=== PATIENT | female | born 1945 | race Caucasian/White ===

== ENCOUNTER → 2017-12-03 | Outpatient (CLI) | payer BC ==
--- NOTE | 2017-12-07 13:07 | MM ---
Reason for exam: screening (asymptomatic). Last mammogram was performed 1 year ago. History: Patient is postmenopausal and has history of high-risk lesion on a previous biopsy at age 63. High risk core biopsy of the right breast, June 2008. Benign right US cyst aspiration of the right breast, November 18, 2007. Taking estrogen for 8 years beginning at age 55. Taking progesterone for 8 years beginning at age 55. Physical Findings: Nurse did not find any significant physical abnormalities on exam. MG 3D Screening Mammo W/Cad Bilateral CC and MLO view(s) were taken. Prior study comparison: November 27, 2016, mammogram, performed at [facility]. September 25, 2015, mammogram, performed at [facility]. Finding: There is an equal architectural distortion in the 11 o'clock upper outer quadrant, middle position of the right breast, maybe distortion from prior surgery. New finding since November 27, 2016 and September 25, 2015. ASSESSMENT: Probably benign, BI-RAD 3 RECOMMENDATION: Follow-up diagnostic mammogram of the right breast in 6 months.
== END | disposition home or self-care (01) ==
LOC: RADMAMWWP 09:34
PROVIDERS: ATTEND Internal Medicine
DX: Z12.31 Encounter for screening mammogram for malignant neoplasm of breast (principal)
CPT/HCPCS: 77063; 77067

== ENCOUNTER 2018-01-08 08:57 | Day surgery (SDC) | payer BC ==
[2018-01-06 12:57] VITALS: BMI 23.3
[~2018-01-08 08:57] MED LIST: LACTATED RINGERS 1,000 ML IV SCH
[2018-01-08 09:50] VITALS: TEMP 98.2
[2018-01-08] MEDS ORDERED: LIDOCAINE 1% 20 ML VIAL (10MG/ML) FOR IV START INTRADERMA ONE (09:50)
[2018-01-08] MEDS ORDERED: LACTATED RINGERS 1,000 ML IV ONE (09:50)
[2018-01-08] MEDS ORDERED: PROPOFOL 10 MG/ML 20 ML VIAL IV ONE (10:24)
--- NOTE | 2018-01-08 10:42 | P.PCN ---
Date of Procedure: 01/08/18 Procedure(s) Performed: BRIEF HISTORY: Patient is a 72-year-old pleasant white female, scheduled for an elective colonoscopy as a part of screening for colorectal neoplasia. PROCEDURE PERFORMED: Colonoscopy with biopsy. PREOPERATIVE DIAGNOSIS: Screening for colon cancer. IV sedation per Anesthesia. PROCEDURE: After informed consent was obtained, the patient, was brought into the endoscopy unit. IV sedation was administered by Anesthesia under continuous monitoring. Digital rectal examination was normal. Initially the Olympus CF- 160 flexible video colonoscope was then inserted in the rectum, gradually advanced into the cecum without any difficulty. Careful examination was performed as the scope was gradually being withdrawn. Ileocecal valve and the appendiceal orifice were visualized and appeared normal. Prep was excellent. Mucosa of the cecum and a 5 mm sessile polyp that was removed by biopsy. The rest of the ascending colon, transverse colon, descending colon, sigmoid colon, and rectum appeared normal. scattered sigmoid diverticulosis seen. Retroflexion was performed in the rectum and no lesions were seen. The patient tolerated the procedure well. IMPRESSION: 5 mm cecal polyp status post removal by biopsy Scattered sigmoid diverticulosis RECOMMENDATIONS: Findings of this examination were discussed with the patient as well as her family. She was advised to follow with the biopsy results. If the biopsy shows a tubular adenoma, she can have a repeat colonoscopy in 5 years
[2018-01-08 10:47] VITALS: RESP 16
[2018-01-08 11:09] VITALS: BP 105/68; PULSE 50
== END 2018-01-08 11:31 | disposition home or self-care (01) ==
LOC: ORWHC2ENDO 08:57
PROVIDERS: ATTEND Internal Medicine Gastroenterology
DX: Z12.11 Encounter for screening for malignant neoplasm of colon (principal); D12.0 Benign neoplasm of cecum; K57.30 Diverticulosis of large intestine without perforation or abscess without bleeding
CPT/HCPCS: 88305; 45380; J2704

== ENCOUNTER → 2018-06-08 | Outpatient (CLI) | payer BC ==
--- NOTE | 2018-06-08 09:00 | MM ---
Reason for exam: follow-up at short interval from prior study. Last mammogram was performed 6 months ago. History: Patient is postmenopausal and has history of high-risk lesion on a previous biopsy at age 63. High risk core biopsy of the right breast, June 2008. Benign right US cyst aspiration of the right breast, November 18, 2007. Took estrogen for 8 years beginning at age 55. Took progesterone for 8 years beginning at age 55. Physical Findings: Nurse did not find any significant physical abnormalities on exam. MG 3D Diag Mammo W/Cad RT CC and MLO view(s) were taken of the right breast. Prior study comparison: December 03, 2017, bilateral MG 3d screening mammo w/cad. November 27, 2016, mammogram, performed at [facility]. The breast tissue is heterogeneously dense. This may lower the sensitivity of mammography. Finding #1: There is stable architectural distortion in the upper quadrant of the right breast consistent with known excisional biopsy. Finding #2: There are typically benign vascular, round calcifications in the right breast. There is no discrete abnormality. These results were verbally communicated with the patient and result sheet given to the patient on 06/08/18. ASSESSMENT: Benign, BI-RAD 2 RECOMMENDATION: Return to routine screening mammogram schedule for both breasts. Back on schedule.
== END ==
LOC: RADMAMWWP 08:07
PROVIDERS: ATTEND Internal Medicine
DX: R92.8 Other abnormal and inconclusive findings on diagnostic imaging of breast (principal)
CPT/HCPCS: 77061; 77065

== ENCOUNTER → 2018-06-15 | Outpatient (CLI) | payer BC | LOC: LABWHC1 09:41 | PROVIDERS: ATTEND Internal Medicine | DX: E83.52 Hypercalcemia (principal); R79.9 Abnormal finding of blood chemistry, unspecified | CPT/HCPCS: 36415; 82310; 83970 ==

== ENCOUNTER → 2018-12-06 | Outpatient (CLI) | payer BC ==
--- NOTE | 2018-12-06 11:13 | BD ---
EXAMINATION TYPE: Axial Bone Density DATE OF EXAM: 12/06/2018 COMPARISON: 2010 CLINICAL HISTORY: Postmenopausal female. Osteoporosis screening. Height: 5 FT 2 1/2 IN Weight: 144 FRAX RISK QUESTIONS: History of Fracture in Adulthood: YES RISK FACTORS HISTORY OF: Family History of Osteoporosis: YES Active: YES Postmenopausal woman: AGE 60'S Take estrogen and/or progesterone medications: TOOK HRT FOR FIVE YEARS Lost more than 2 inches in height since high school: YES MEDICATIONS: Additional Medications: FLONASE, Additional History: EXAM MEASUREMENTS: Bone mineral densitometry was performed using the [employer]. Bone mineral density as measured about the Lumbar spine is: ----- L1-L4(G/cm2): 1.217 T Score Values are as follows: ----- L2: -0.8 ----- L3: 1.2 ----- L4: 0.8 ----- L1-L4: 0.3 Bone mineral density has: DECREASED -2.5 % since study of: 2010 Bone mineral density about the R hip (g/cm2): 0.804 Bone mineral density about the L hip (g/cm2): 0.828 T Score values are as follows: -----R Neck: -1.7 -----L Neck: -1.5 -----R Total: -1.1 -----L Total: -1.4 Bone mineral density has: DECREASED -4.9 % since study of: 2010 IMPRESSION: Osteopenia (T Score between -2.5 and -1). There is slightly increased risk of fracture and the patient may be considered for treatment. Re-Screen 2-5 years. NOTE: T-SCORE=SD OF THE YOUNG ADULT MEAN.
--- NOTE | 2018-12-08 09:24 | MM ---
Reason for exam: screening (asymptomatic). Last mammogram was performed 6 months ago. History: Patient is postmenopausal and has history of high-risk lesion on a previous biopsy at age 63. High risk core biopsy of the right breast, June 2008. Benign right US cyst aspiration of the right breast, November 18, 2007. Took estrogen for 8 years beginning at age 55. Took progesterone for 8 years beginning at age 55. Physical Findings: A clinical breast exam by your physician is recommended on an annual basis and results should be correlated with mammographic findings. MG 3D Screening Mammo W/Cad Bilateral CC and MLO view(s) were taken. Prior study comparison: June 08, 2018, right breast MG 3d diag mammo w/cad RT. December 03, 2017, bilateral MG 3d screening mammo w/cad. The breast tissue is heterogeneously dense. This may lower the sensitivity of mammography. Finding: There are typically benign round, diffuse/scattered calcifications in the left breast. There are benign vascular calcification bilaterally. No discrete abnormality. ASSESSMENT: Benign, BI-RAD 2 RECOMMENDATION: Routine screening mammogram of both breasts in 1 year.
== END | disposition home or self-care (01) ==
LOC: RADMAMWWP 08:47
PROVIDERS: ATTEND Internal Medicine
DX: Z12.31 Encounter for screening mammogram for malignant neoplasm of breast (principal); M85.851 Other specified disorders of bone density and structure, right thigh; E83.52 Hypercalcemia
CPT/HCPCS: 77063; 77067; 77080

== ENCOUNTER → 2019-01-18 | Outpatient (CLI) | payer BC ==
--- NOTE | 2019-01-18 16:30 | CT ---
EXAMINATION TYPE: CT abdomen pelvis w con DATE OF EXAM: 01/18/2019 HISTORY: Upper quadrant abdominal pain. Suspect diverticulitis CT DLP: 477.10mGycm Automated Exposure Control for Dose Reduction was Utilized. CONTRAST: CT scan of the abdomen and pelvis is performed with IV Contrast, patient injected with 100 mL of Isov ue 300. COMPARISON: None. FINDINGS: LUNG BASES: There is pleural parenchymal scarring within the lingula and dependent bibasilar subsegme ntal atelectasis. The heart is enlarged. Small hiatal hernia is seen. LIVER/GB: Hepatic parenchyma is diffusely hypoattenuated in comparison to that of the spleen, most commonly see n in hepatic steatosis. This finding limits evaluation for hepatic masses. No gross evidence of hepat ic mass is seen. No intrahepatic biliary ductal dilatation. No cholelithiasis. PANCREAS: Pancreatic duct is upper limits of normal measuring 2.6 mm in the pancreatic body. No discr ete pancreatic mass is seen however MRCP could be utilized for further evaluation. SPLEEN: No significant abnormality is seen. ADRENALS: No significant abnormality is seen. KIDNEYS: To small to accurately characterize hypoattenuated left upper pole renal lesion and slightly larger 8mm left renal cyst are evident. No hydronephrosis of either kidney. 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 BOWEL: Numerous sigmoid diverticula are present. Very mild pericolonic fat stranding is seen surround ing the proximal sigmoid colon. No evidence of perforation or pericolonic abscess. Descending colonic and few transverse colonic diverticula are also noted. There is moderate degree colonic fecal stasis throughout. This limits evaluation of the colon. Lipomatous hypertrophy of the ileocecal valve is se en. No dilated large or small bowel. There is a fat filled left inguinal hernia with a neck measuring 2.5 cm on series 3 image 71. There is cystic dilation of the distal tip of the appendix measuring 1.2 x 1.0 cm adjacent to the rig ht common iliac artery on image 55 of series 3. Small mucocele is of primary diagnostic consideration . UTERUS/ADNEXA: No gross abnormality seen. LYMPH NODES: No greater than 1cm abdominal or pelvic lymph nodes are appreciated. OSSEOUS STRUCTURES: Mild bilateral femoral acetabular arthropathy and mild multilevel degenerative ch anges of spine. Mild levoscoliosis of the lumbar spine could be positional.. OTHER: Moderate atherosclerosis is seen of the abdominal aorta and its branches. IMPRESSION: 1. Very mild acute uncomplicated sigmoid diverticulitis. 2. Cystic dilatation of the distal appendiceal tip is seen measuring up to 1.2 cm. Primary diagnostic consideration is for a small appendiceal mucocele. 3. Fat filled left inguinal hernia with a neck measuring 2.5 cm. 4. Upper limits of normal size of the pancreatic duct. MRCP could be utilized for further evaluation. 5. Mild degree hepatic steatosis. 6. Moderate degree colonic fecal stasis throughout the nondilated colon.
== END | disposition home or self-care (01) ==
LOC: RADCTMAIN 12:38
PROVIDERS: ATTEND Surgery Plastic and Reconstructive Surgery
DX: K57.32 Diverticulitis of large intestine without perforation or abscess without bleeding (principal); K76.0 Fatty (change of) liver, not elsewhere classified; K40.90 Unilateral inguinal hernia, without obstruction or gangrene, not specified as recurrent; K38.8 Other specified diseases of appendix; Z88.5 Allergy status to narcotic agent
CPT/HCPCS: 82565; 84520; 74177; 36415; Q9967

== ENCOUNTER → 2019-01-25 | Outpatient (CLI) | payer BC | END | disposition home or self-care (01) | LOC: RADXRMAIN 11:44 | PROVIDERS: ATTEND Surgery Plastic and Reconstructive Surgery | DX: Z01.810 Encounter for preprocedural cardiovascular examination (principal) | CPT/HCPCS: 93005 ==

== ENCOUNTER 2019-03-08 20:29 | Emergency (ER) | payer BC ==
[2019-03-08 22:20] LABS: Appearance,Urine Clear (Clear); Bilirubin,Urine Negative (Negative); Blood,Urine Small (Negative); Color,Urine Light Yellow; Glucose,Urine (UA) Negative (Negative); Ketones,Urine Negative (Negative); Leukocyte Esterase,Urine Large (Negative); Mucus,Urine Rare /hpf; Nitrite,Urine Negative (Negative); PH, Urine 6.5 (5.0-8.0); Protein,Urine Negative (Negative); RBC,Urine 7 /hpf (0-5); Specific Gravity,Urine 1.009 (1.001-1.035); Squamous Epithelial Cell,Urine 1 /hpf (0-4); Urobilinogen,Urine <2.0 mg/dL (<2.0); WBC,Urine 27 /hpf (0-5)
--- NOTE | 2019-03-08 22:24 | ED ---
Abdominal Pain HPI - General Chief Complaint: Abdominal Pain Stated Complaint: Constipation, sent by [facility] hernia Time Seen by Provider: 03/08/19 20:53 Source: patient Mode of arrival: ambulatory Limitations: no limitations - History of Present Illness Initial Comments: Patient is a 73-year-old female presenting to the emergency department with a chief complaint of constipation. Patient reports she is scheduled to have an ventral hernia repair with Dr. Jimenez and is currently undergoing presurgical testing. Patient reports constipation over the past 3 weeks. Patient reports she spoke with the primary care who suggested that she takes stool softeners. Patient is currently a stool softeners but reports her last bowel movement was 4 days ago. Patient denies any nausea or vomiting or diarrhea. Patient denies any fevers night sweats or chills. Patient does report abdominal bloating but denies any abdominal pain. Patient reports rather abdominal discomfort. Patient reports taking gyat-[id number] analgesics with minimal improvement. - Related Data Home Medications Medication Instructions Recorded Confirmed Pravastatin Sodium [Pravachol] 20 mg PO DAILY 03/08/19 03/08/19 Allergies Allergy/AdvReac Type Severity Reaction Status Date / Time codeine Allergy Confusion Verified 03/08/19 20:59 Review of Systems ROS Statement: Those systems with pertinent positive or pertinent negative responses have been documented in the HPI. ROS Other: All systems not noted in ROS Statement are negative. Past Medical History Past Medical History: Asthma History of Any Multi-Drug Resistant Organisms: None Reported Past Surgical History: Breast Surgery Additional Past Surgical History / Comment(s): BREAST BIOPSY, COLONOSCOPY Past Anesthesia/Blood Transfusion Reactions: Motion Sickness, Postoperative Nausea & Vomiting (PONV) Past Psychological History: No Psychological Hx Reported Smoking Status: Never smoker Past Alcohol Use History: None Reported Past Drug Use History: None Reported - Past Family History Mother Family Medical History: Cancer Additional Family Medical History / Comment(s): CERVICAL CANCER Father Family Medical History: Cancer General Exam Limitations: no limitations General appearance: alert, in no apparent distress Head exam: Present: atraumatic, normocephalic, normal inspection Eye exam: Present: normal appearance, PERRL, EOMI Pupils: Present: normal accommodation ENT exam: Present: normal exam, normal oropharynx, mucous membranes moist, TM's normal bilaterally, normal external ear exam Neck exam: Present: normal inspection, full ROM Respiratory exam: Present: normal lung sounds bilaterally Cardiovascular Exam: Present: regular rate, normal rhythm, normal heart sounds GI/Abdominal exam: Present: soft, normal bowel sounds, hernia (Left-sided v entral hernia that is reducible. No pain over the hernia.). Absent: tenderness Extremities exam: Present: normal inspection, full ROM Back exam: Present: normal inspection, full ROM. Absent: CVA tenderness (R), CVA tenderness (L) Neurological exam: Present: alert, oriented X3 Psychiatric exam: Present: normal affect, normal mood Skin exam: Present: warm, intact, normal color Course Vital Signs 03/08/19 20:32 Temperature 98.9 F Pulse Rate 71 Respiratory 18 Rate Blood Pressure 156/82 O2 Sat by Pulse 95 Oximetry Medical Decision Making - Medical Decision Making Patient is 73-year-old female presenting to emergency Department with a chief complaint of constipation. Patient is scheduled to undergo an elective ventral hernia repair as soon as she is cleared by her presurgical screenings. Patient has a reducible ventral hernia at the left lower quadrant. Patient doesn't have any pain with palpation at the hernia site. I have no concern for i ncarceration of the intestines of MRSA. CBC and CMP unremarkable. UA is indicative of a possible mild UTI but she is not symptomatic so I am not going to treat the patient. X-ray KUB is unremarkable. Patient does have small bowel loops with no small intestine dilation. Patient will be given magnesium citrate and advised to take at home. Patient advised to continue her presurgical workup. Patient advised to follow with primary care. Strict return parameters thoroughly discussed the patient was understanding and agreeable. Case discussed physician. - Lab Data Result diagrams: 03/08/19 22:29 03/08/19 22:29 Lab Results 03/08/19 03/08/19 03/08/19 Range/Units 22:09 22:29 22:29 WBC 7.7 (3.8-10.6) k/uL RBC 4.29 (3.80-5.40) m/uL Hgb 12.8 (11.4-16.0) gm/dL Hct 38.3 (34.0-46.0) % MCV 89.3 (80.0-100.0) fL MCH 29.8 (25.0-35.0) pg MCHC 33.4 (31.0-37.0) g/dL RDW 14.2 (11.5-15.5) % Plt Count 261 (150-450) k/uL Neutrophils % 65 % Lymphocytes % 23 % Monocytes % 6 % Eosinophils % 4 % Basophils % 1 % Neutrophils # 5.0 (1.3-7.7) k/uL Lymphocytes # 1.7 (1.0-4.8) k/uL Monocytes # 0.4 (0-1.0) k/uL Eosinophils # 0.3 (0-0.7) k/uL Basophils # 0.1 (0-0.2) k/uL Sodium 141 (137-145) mmol/L Potassium 3.9 (3.5-5.1) mmol/L Chloride 106 (98-107) mmol/L Carbon Dioxide 26 (22-30) mmol/L Anion Gap 9 mmol/L BUN 14 (7-17) mg/dL Creatinine 0.80 (0.52-1.04) mg/dL Est GFR (CKD-EPI)AfAm 84 (>60 ml/min/1.73 sqM) Est GFR (CKD-EPI)NonAf 73 (>60 ml/min/1.73 sqM) Glucose 100 H (74-99) mg/dL Calcium 10.4 H (8.4-10.2) mg/dL Total Bilirubin 0.6 (0.2-1.3) mg/dL AST 26 (14-36) U/L ALT 27 (9-52) U/L Alkaline Phosphatase 97 (38-126) U/L Total Protein 7.1 (6.3-8.2) g/dL Albumin 4.1 (3.5-5.0) g/dL Amylase 82 (30-110) U/L Lipase 255 (23-300) U/L Urine Color Light Yellow Urine Appearance Clear (Clear) Urine pH 6.5 (5.0-8.0) Ur Specific [facility] 1.009 (1.001-1.035) Urine Protein Negative (Negative) Urine Glucose (UA) Negative (Negative) Urine Ketones Negative (Negative) Urine Blood Small H (Negative) Urine Nitrite Negative (Negative) Urine Bilirubin Negative (Negative) Urine Urobilinogen <2.0 (<2.0) mg/dL Ur Leukocyte Esterase Large H (Negative) Urine RBC 7 H (0-5) /hpf Urine WBC 27 H (0-5) /hpf Ur Squamous Epith Cells 1 (0-4) /hpf Urine Mucus Rare H (None) /hpf Disposition Clinical Impression: Constipation Disposition: HOME SELF-CARE Condition: Stable Instructions (If sedation given, give patient instructions): Constipation (DC) Additional Instructions: Please take prescribed medication as directed. These follow with primary care. Please return to emergency department if symptoms worsen. Is patient prescribed a controlled substance at d/c from ED?: No Referrals: Nadine Guerrero MD [Primary Care Provider] - 1-2 days Time of Disposition: 23:27
--- NOTE | 2019-03-08 22:26 | XR ---
EXAMINATION TYPE: XR KUB DATE OF EXAM: 03/08/2019 9:39 PM CLINICAL HISTORY: Left-sided hernia. Constipation and lower abdominal pain TECHNIQUE: 2 upright views. COMPARISON: None. FINDINGS: Scattered gas is seen in non-distended small bowel loops. Gas and fecal material is seen in non-distended colon. There is no visceromegaly, pneumoperitoneum, or abnormal calcification apprecia darren. The visualized lung bases and pleural spaces are negative for acute findings. There is moderate marke d enlargement of the cardiac silhouette. IMPRESSION: No acute radiographic process.
[2019-03-08 22:37] LABS: Basophils # (A) 0.1 k/uL (0-0.2); Basophils % (A) 1 %; Eosinophils # (A) 0.3 k/uL (0-0.7); Eosinophils % (A) 4 %; HCT 38.3 % (34.0-46.0); HGB 12.8 gm/dL (11.4-16.0); Lymphocytes # (A) 1.7 k/uL (1.0-4.8); Lymphocytes % (A) 23 %; MCH 29.8 pg (25.0-35.0); MCHC 33.4 g/dL (31.0-37.0); MCV 89.3 fL (80.0-100.0); Mean Platelet Volume 7.2; Monocytes # (A) 0.4 k/uL (0-1.0); Monocytes % (A) 6 %; Neutrophils % (A) 65 %; Platelet Count 261 k/uL (150-450); RBC 4.29 m/uL (3.80-5.40); RDW 14.2 % (11.5-15.5); WBC 7.7 k/uL (3.8-10.6)
[2019-03-08 22:47] LABS: Albumin 4.1 g/dL (3.5-5.0); Calcium 10.4 mg/dL (8.4-10.2); Potassium 3.9 mmol/L (3.5-5.1); Total Bilirubin 0.6 mg/dL (0.2-1.3); Total Protein 7.1 g/dL (6.3-8.2)
[2019-03-08] MEDS ORDERED: MAGNESIUM CITRATE 296 ML BOTTLE PO ONE (23:20)
[2019-03-08 23:47] VITALS: BP 133/76; PULSE 752; RESP 16; TEMP 98.8
== END 2019-03-08 23:47 | disposition home or self-care (01) ==
LOC: EC 20:29
DX: K59.00 Constipation, unspecified (principal); K43.9 Ventral hernia without obstruction or gangrene; Z79.899 Other long term (current) drug therapy; Z88.5 Allergy status to narcotic agent
CPT/HCPCS: 36415; 74018; 80053; 81001; 82150; 83690; 85025; 99284

== ENCOUNTER → 2019-06-02 | Day surgery (SDC) | payer BC ==
[2019-05-31 14:43] VITALS: BMI 24.0
[~2019-06-02] MED LIST changes: +BUPIVACAIN-EPI 0.25%-1:200,000 30 ML VIAL SQ ONE; +DEXAMETHASONE SOD PHOSPHATE 10 MG/ML 1 ML VIAL IV ONE; +GLYCOPYRROLATE 0.2 MG/ML 2 ML VIAL ONE; +HEPARIN SODIUM,PORCINE 5,000 UNIT/ML 1 ML VIAL SQ ONE; +HYDROmorphone 0.5 MG/0.5 ML SYRINGE IVP PRN; +LACTATED RINGERS 1,000 ML IV ONE; -LACTATED RINGERS 1,000 ML IV SCH; +LIDOCAINE 1% 20 ML VIAL (10MG/ML) FOR IV START INTRADERMA ONE; +LIDOCAINE 1% INJ 10MG/ML (20 ML MDV) ONE; +MIDAZOLAM 2 MG/2 ML VIAL IVP ONE; +NEOSTIGMINE 1 MG/ML 10 ML VIAL ONE; +ONDANSETRON 4 MG/2 ML VIAL IVP ONE; +ONDANSETRON 4 MG/2 ML VIAL IVP PRN; +PROPOFOL 10 MG/ML 20 ML VIAL IV ONE; +ROCURONIUM BROMIDE 10 MG/ML 10 ML VIAL IV ONE; +ROPIVACAINE 5 MG/ML 30 ML VIAL ONE; +SCOPOLAMINE 1.5MG/72HR PATCH TRANSDERM ONE; +TAMSULOSIN 0.4 MG CAP.ER.24H PO ONE; +ePHEDrine SULFATE/0.9% NACL/PF 50 MG/5 ML SYRINGE IV ONE; +fentaNYL (PF) 50 MCG/ML 2 ML AMP ONE; +metroNIDAZOLE-NS PMX 500 MG in SALINE 1 100ML.BAG IVPB ONE
--- NOTE | 2019-06-02 09:34 | P.GSHP ---
History of Present Illness H&P Date: 06/02/19 CHIEF COMPLAINT: Inguinal hernia, left HISTORY OF PRESENT ILLNESS: The patient is a 74-year-old female who presents with a history of swelling and pain along the left groin. She has noted increased swelling including pain of the area. Now she presents for repair of her inguinal hernia. 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 PAST MEDICAL HISTORY: Please see list. PAST SURGICAL HISTORY: Please see list. MEDICATIONS: Please see list. ALLERGIES: Please see list. SOCIAL HISTORY: No illicit drug use FAMILY HISTORY: No reports of Crohn disease or ulcerative colitis. REVIEW OF ORGAN SYSTEMS: CONSTITUTIONAL: No reports of fevers or chills. No reports of weight loss despite prior attempts. GI: Denies any blood in stools. Has constipation. PHYSICAL EXAM: VITAL SIGNS: Stable GENERAL: Well-developed pleasant in no acute distress. HEENT: No scleral icterus. Extraocular movements grossly intact. Moist buccal mucosa. NECK: Supple without lymphadenopathy. CHEST: Unlabored respirations. Equal bilateral excursions. CARDIOVASCULAR: Regular rate and rhythm. Distal 2+ pulses. ABDOMEN: Soft, nondistended. No peritoneal signs. Swelling along the left lower quadrant MUSCULOSKELETAL: No clubbing, cyanosis, or edema. ASSESSMENT: 1. Inguinal hernia, left 2. Mucocele of the appendix. PLAN: 1. Recommend proceeding robotic inguinal repair with mesh with possible bilateral approach. 2. Benefits and risks of surgical intervention was discussed including possibility of open technique. 3. DVT prophylaxis. 4. Antibiotic prophylaxis. 5. Additional appendectomy for mucocele of the appendix. Past Medical History Past Medical History: No Reported History History of Any Multi-Drug Resistant Organisms: None Reported Past Surgical History: Breast Surgery, Tonsillectomy Additional Past Surgical History / Comment(s): BREAST BIOPSY RIGHT Past Anesthesia/Blood Transfusion Reactions: Postoperative Nausea & Vomiting (PONV) Smoking Status: Never smoker - Past Family History Mother Family Medical History: Cancer Additional Family Medical History / Comment(s): CERVICAL CANCER Father Family Medical History: Cancer Medications and Allergies Home Medications Medication Instructions Recorded Confirmed Type Pravastatin Sodium [Pravachol] 20 mg PO DAILY 03/08/19 05/31/19 History Allergies Allergy/AdvReac Type Severity Reaction Status Date / Time codeine Allergy Confusion Verified 05/31/19 14:38
[2019-06-02] MEDS: LACTATED RINGERS 1,000 ML IV SCH (11:30)
--- NOTE | 2019-06-02 12:46 | P.ANPRN ---
Procedure Note - Anesthesia - Nerve Block Performed Bilateral Transversus Abdominis Single Time Out Performed: Yes Date of Procedure: 06/02/19 Procedure Start Time: 12:35 Procedure Stop Time: 12:39 Location of Patient: PreOp Indication: Acute Post-Operative Pain, Analgesia, Requested by Surgeon Sedation Type: Sedate with meaningful contact maintained Preparation: Sterile Prep Position: Supine Catheter: None Needle Types: Pajunk Needle Gauge: 21 Ultrasound used to visualize needle placement: Yes Ultrasound used to observe medication spread: Yes Injectate: Other (see comment) (0.25 ropivacaine 30cc b/l) Blood Aspirated: No Pain Paresthesia on Injection Noted: No Resistance on Injection: Normal Image Stored and Saved: Yes Events: Uneventful and Well Tolerated
[2019-06-02 15:20] VITALS: RESP 16; TEMP 98
--- NOTE | 2019-06-02 15:39 | P.OP ---
Date of Procedure: 06/02/19 Description of Procedure: SURGEON: KAMINI STUART MD PREOPERATIVE DIAGNOSES: 1. History of left inguinal swelling and pain 2. Previous history of tubal ligation and hysterectomy 3. 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 History of left inguinal swelling and pain 2. Previous history of tubal ligation and hysterectomy 3. 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 Left inguinal hernia, indirect, initial and incarcerated, 3 cm 5. Internal hernia x 2, left pelvis due to adhesions 6. Peritoneal adhesions 7. Left inguinal lipoma, 3 x 4 cm OPERATION: 1. Robotic assisted da Torsten Xi laparoscopic reduction of incarcerated left inguinal hernia with repair using ventralight ST mesh, 11.4 cm. 2. Robotic assisted da Torsten Xi laparoscopic appendectomy 3. Robotic assisted da Torsten Xi laparoscopic reduction of internal hernia with lysis of adhesions 4. Excision of subfascial left inguinal lipoma 3 x 4 cm ANESTHESIA: General with local anesthetic ESTIMATED BLOOD LOSS: 5 mL. SPECIMENS REMOVED: 1. Appendix 2. Left inguinal hernia sac and lipoma COMPLICATIONS: None. FINDINGS: 1. Large subfascial left inguinal tumor resected 3 x 4 cm 2. The tip of the appendix was dilated without periappendicitis. No perforation was identified. 3. Abnormal adhesion between the greater omentum and left fallopian tube was found creating an internal hernia incorporating the sigmoid colon and divided. 4. The size of the hernia defect was 3 cm with intraoperative films obtained. 5. Abnormal adhesion of the left pelvis to her prior tubal ligation was found creating internal hernia also divided. INDICATIONS: The patient is a 74-year-old female who presents with history of left-sided pain. Additional work-up with CT of the abdomen also demonstrated a tumor of the appendix. Now she presents for definitive surgical intervention. L aparoscopic versus open and robotic approaches were discussed. Left inguinal hernia repair including appendectomy were reviewed. Benefits and risks including bleeding, infection, and chronic groin pain were reviewed. Placement of mesh was also described. Informed consent was obtained. DESCRIPTION: In the preoperative area, the patient was marked with indelible marker along the left groin. The patient was brought to the operating room and initially laid in supine position. After general induction, the abdomen had been prepped and draped in standard sterile fashion. Ioban draping was also placed. Prior to incision, a timeout protocol was confirmed with surgical team regarding patient's name including procedures to be performed and location along the left groin. Initial positioning for the robotic assisted ports were selected whereby 20 cm superior to the target anatomy, 0 degree 5 mm laparoscopic trocar entry was performed at the left upper quadrant. The abdomen was insufflated to 15 mmHg which she had tolerated well. Diagnostic laparoscopy demonstrated a defect along the left groin. No defects were identified along the right groin. A dilated tip of the appendix was identified with peritoneal studding. The base of the cecum was unremarkable. Next, along the epigastrium, 8 mm robot trocar was placed. A 12-mm robotic trocar was placed under direct visualization at the right upper quadrant. The 5 mm port was exchanged for a 8 mm trocar. All trocars were positioned 10-cm apart from each other. The iRezQ XI robot was primed, draped, prepared for docking along the left side of the patient. I then went to the iRez[employer] Xi console. The speech pathology assistant was at bedside for exchange of the robot arms and equipment. At the left groin, the peritoneum was scored over the 3 cm defect. The hernia sac was evaginated whereby the peritoneum was scored using Endo scissors with cautery. The hernia sac had reached into the depth of the left inguinal canal. Additionally, a 3 x 4 cm subfascial inguinal canal tumor was excised and evaginated into the peritoneal cavity using vessel sealer. Once completely reduced into the abdominal cavity, the peritoneal sac of the hernia was stripped. The sac was resected and then passed off for further pathological analysis. The size of the hernia defect was 3 cm with intraoperative films obtained. Using a 2-0 VLOC, the peritoneal defect of the left inguinal hernia site was closed using a pursestring suture. The defect was found to be completely closed with complete reduction of the left inguinal hernia was confirmed. As an onlay, an 11.[address] mesh by Zenty[employer] was cut in half and entered into the abdominal cavity via the 8 mm trocar. The mesh was tacked to the pelvis using 2-0 VLOC 9-inch length sutures. At the hernia site, an abnormal adhesion between the greater omentum and left fallopian tube was found creating an internal hernia incorporating the sigmoid colon. The adhesion was divided and the internal hernia was released. Next another internal hernia from abnormal adhesion of the left pelvis to her prior tubal ligation was found. Similar, the adhesion was divided freeing the fallopian tube and releasing the internal hernia. Attention was brought to the appendix. The tip of the appendix was dilated without periappendicitis. No perforation was identified. A 45 mm blue robotic staple load was fired along the base of the appendix. The staple line was hemostatic. Hemostasis was checked prior to undocking the robot. The robot was undocked from the patient's bedside. I then rescrubbed into the case. The specimen was removed from the abdominal cavity from the right upper quadrant port site. Insufflation was released from the abdominal cavity and all instruments were removed from the abdominal cavity. The rest of incisions were reapproximated using 4-0 Monocryl in a running subcuticular fashion. Incisions were cleansed using dilute hydrogen peroxide. Dermabond was applied to the skin. At the end of the procedure, the needle, sponge and instrument counts had been verified correct by the nursing surgical services director. The patient had tolerated the procedure well and was taken to the postanesthesia care unit in stable condition. Intraoperative findings were described to the patient's family who were pleased with the level of care.
[2019-06-02 16:30] VITALS: PULSE 53
[2019-06-02 16:42] VITALS: BP 139/76
== END | disposition home or self-care (01) ==
LOC: OR 10:16
PROVIDERS: ATTEND Surgery Plastic and Reconstructive Surgery
DX: K40.30 Unilateral inguinal hernia, with obstruction, without gangrene, not specified as recurrent (principal); D17.1 Benign lipomatous neoplasm of skin and subcutaneous tissue of trunk; K38.8 Other specified diseases of appendix; K66.0 Peritoneal adhesions (postprocedural) (postinfection); Z90.710 Acquired absence of both cervix and uterus; Z98.51 Tubal ligation status; Z80.49 Family history of malignant neoplasm of other genital organs; Z80.9 Family history of malignant neoplasm, unspecified; Z79.899 Other long term (current) drug therapy; Z88.5 Allergy status to narcotic agent
CPT/HCPCS: 49650; S2900; 64488; 88304

== ENCOUNTER → 2019-08-31 | Outpatient (CLI) | payer BC ==
[2019-08-31 10:07] LABS: Chol/HDL Ratio 2.69; LDL Cholesterol,Calculated 108.2 mg/dL (0.0-131.0); VLDL Calculation 11.8 mg/dL (5.00-40.00)
== END | disposition home or self-care (01) ==
LOC: LABWHC1 07:31
PROVIDERS: ATTEND Nurse Practitioner Adult Health
DX: E78.2 Mixed hyperlipidemia (principal)
CPT/HCPCS: 36415; 80061

== ENCOUNTER → 2019-12-26 | Outpatient (CLI) | payer BC ==
[2019-12-26 18:15] LABS: Chol/HDL Ratio 2.8; LDL Cholesterol,Calculated 107.4 mg/dL (0.0-131.0); VLDL Calculation 11.6 mg/dL (5.00-40.00)
== END | disposition home or self-care (01) ==
LOC: LABWHC1 08:21
PROVIDERS: ATTEND Nurse Practitioner Family
DX: E78.49 Other hyperlipidemia (principal)
CPT/HCPCS: 36415; 80061

== ENCOUNTER → 2019-12-29 | Outpatient (CLI) | payer BC ==
--- NOTE | 2019-12-30 10:59 | MM ---
Reason for exam: screening (asymptomatic). Last mammogram was performed 1 year and 1 month ago. History: Patient is postmenopausal and has history of high-risk lesion on a previous biopsy at age 63. High risk core biopsy of the right breast, June 2008. Benign right US cyst aspiration of the right breast, November 18, 2007. Took estrogen for 8 years beginning at age 55. Took progesterone for 8 years beginning at age 55. Physical Findings: A clinical breast exam by your physician is recommended on an annual basis and results should be correlated with mammographic findings. MG 3D Screening Mammo W/Cad Bilateral CC and MLO view(s) were taken. Prior study comparison: December 06, 2018, bilateral MG 3d screening mammo w/cad. June 08, 2018, right breast MG 3d diag mammo w/cad RT. There are scattered fibroglandular densities. No significant changes when compared with prior studies. ASSESSMENT: Benign, BI-RAD 2 RECOMMENDATION: Routine screening mammogram of both breasts in 1 year.
== END | disposition home or self-care (01) ==
LOC: RADMAMWWP 09:29
PROVIDERS: ATTEND Family Medicine
DX: Z12.31 Encounter for screening mammogram for malignant neoplasm of breast (principal)
CPT/HCPCS: 77063; 77067

== ENCOUNTER → 2020-04-13 | Outpatient (CLI) | payer BC ==
[2020-04-13 08:26] LABS: HCT 41.7 % (34.0-46.0); HGB 13.3 gm/dL (11.4-16.0); MCH 29.9 pg (25.0-35.0); MCHC 31.9 g/dL (31.0-37.0); MCV 93.6 fL (80.0-100.0); Mean Platelet Volume 6.8; Platelet Count 227 k/uL (150-450); RBC 4.45 m/uL (3.80-5.40); WBC 5.8 k/uL (3.8-10.6)
== END | disposition home or self-care (01) ==
LOC: LABPAT 07:40
PROVIDERS: ATTEND Anesthesiology
DX: Z01.818 Encounter for other preprocedural examination (principal); K40.91 Unilateral inguinal hernia, without obstruction or gangrene, recurrent
CPT/HCPCS: 36415; 85027; 93005

== ENCOUNTER 2020-04-16 05:52 | Day surgery (SDC) | payer BC ==
[2020-04-12 15:45] VITALS: BMI 23.3
[2020-04-16] MEDS ORDERED: HEPARIN SODIUM,PORCINE 5,000 UNIT/ML 1 ML VIAL SQ ONE (06:00)
[2020-04-16] MEDS ORDERED: ACETAMINOPHEN TAB 500 MG TAB PO STA (06:24)
[2020-04-16] MEDS ORDERED: GABAPENTIN 300 MG CAP PO STA (06:24)
[2020-04-16] MEDS ORDERED: LACTATED RINGERS 1,000 ML IV ONE ×2 (06:26→08:10)
--- NOTE | 2020-04-16 06:26 | P.GSHP ---
History of Present Illness H&P Date: 04/16/20 CHIEF COMPLAINT: Inguinal hernia, left HISTORY OF PRESENT ILLNESS: The patient is a 75-year-old female who presents with a history of swelling and pain along the left groin. She has had previous repair. She's noted increased swelling including pain of the area. Now she presents for repair of her inguinal hernia. PAST MEDICAL HISTORY: Please see list. PAST SURGICAL HISTORY: Please see list. MEDICATIONS: Please see list. ALLERGIES: Please see list. SOCIAL HISTORY: No illicit drug use FAMILY HISTORY: No reports of Crohn disease or ulcerative colitis. REVIEW OF ORGAN SYSTEMS: CONSTITUTIONAL: No reports of fevers or chills. No reports of weight loss despite prior attempts. GI: Denies any blood in stools or constipation. PHYSICAL EXAM: VITAL SIGNS: Stable GENERAL: Well-developed pleasant male in no acute distress. HEENT: No scleral icterus. Extraocular movements grossly intact. Moist buccal mucosa. NECK: Supple without lymphadenopathy. CHEST: Unlabored respirations. Equal bilateral excursions. CARDIOVASCULAR: Regular rate and rhythm. Distal 2+ pulses. ABDOMEN: Soft, nondistended. No peritoneal signs. Palpable defect of the left groin. MUSCULOSKELETAL: No clubbing, cyanosis, or edema. ASSESSMENT: 1. Inguinal hernia, left PLAN: 1. Recommend proceeding with a robotic inguinal repair with mesh with possible bilateral approach. 2. Benefits and risks of surgical intervention was discussed including possibility of open technique. 3. DVT prophylaxis. 4. Antibiotic prophylaxis. Past Medical History Past Medical History: No Reported History Additional Past Medical History / Comment(s): RECURRENT LT INGUINAL HERNIA History of Any Multi-Drug Resistant Organisms: None Reported Past Surgical History: Appendectomy, Breast Surgery, Hernia Repair, Tonsillectomy, Tubal Ligation Additional Past Surgical History / Comment(s): BREAST BIOPSY RIGHT. LT INGUINAL HERNIA 05/2019 WITH LYSIS OF ADHESIONS. COLONOSCOPY Past Anesthesia/Blood Transfusion Reactions: Postoperative Nausea & Vomiting (PONV) Smoking Status: Never smoker - Past Family History Mother Family Medical History: Cancer Additional Family Medical History / Comment(s): CERVICAL CANCER Father Family Medical History: Cancer Medications and Allergies Home Medications Medication Instructions Recorded Confirmed Type Pravastatin Sodium [Pravachol] 20 mg PO DAILY 03/08/19 04/12/20 History Acetaminophen Tab [Tylenol Tab] 500 mg PO Q6H PRN #30 tablet 06/02/19 04/12/20 Rx Ascorbic Acid [Vitamin C] 500 mg PO DAILY 04/12/20 04/12/20 History Multivitamins, Thera [Multivitamin 1 tab PO DAILY 04/12/20 04/12/20 History (formulary)] Ubidecarenone [Co Q-10] 100 mg PO DAILY 04/12/20 04/12/20 History Allergies Allergy/AdvReac Type Severity Reaction Status Date / Time codeine Allergy Confusion Verified 04/12/20 15:28 povidone-iodine AdvReac ITCHINH, Verified 04/12/20 15:29 [From Betadine] RED, RASH soap [From Betadine] AdvReac ITCHINH, Verified 04/12/20 15:29 RED, RASH Surgical - Exam Vital Signs Temp Pulse Resp BP Pulse Ox 97.5 F L 75 16 127/60 98 04/16/20 06:16 04/16/20 06:16 04/16/20 06:16 04/16/20 06:16 04/16/20 06:16
[2020-04-16] MEDS ORDERED: ACETAMINOPHEN TAB 500 MG TAB ONE (06:27)
[2020-04-16] MEDS ORDERED: LIDOCAINE 1% (10MG/ML) FOR IV START INTRADERMA ONE (06:29)
[2020-04-16] MEDS ORDERED: HYDROmorphone 0.5 MG/0.5 ML SYRINGE IVP PRN (06:31)
[2020-04-16] MEDS ORDERED: LACTATED RINGERS 1,000 ML IV SCH (06:31)
[2020-04-16] MEDS ORDERED: DEXAMETHASONE SOD PHOSPHATE 10 MG/ML 1 ML VIAL IV ONE (06:31)
[2020-04-16] MEDS ORDERED: ONDANSETRON 4 MG/2 ML VIAL IVP ONE ×2 (06:31→10:47)
[2020-04-16] MEDS ORDERED: MIDAZOLAM 2 MG/2 ML VIAL IVP ONE (06:50)
[2020-04-16] MEDS ORDERED: fentaNYL (PF) 50 MCG/ML 2 ML AMP IVP ONE (06:50)
--- NOTE | 2020-04-16 07:12 | P.ANPRN ---
Procedure Note - Anesthesia - Nerve Block Performed Left Transversus Abdominis Single Time Out Performed: Yes Date of Procedure: 04/16/20 Procedure Start Time: 06:50 Procedure Stop Time: 07:00 Location of Patient: PreOp Indication: Requested by Surgeon Specifically requested for management of pain by DrSaleem: Dulce Maria Mack Sedation Type: Sedate with meaningful contact maintained Preparation: Sterile Prep Position: Supine Needle Types: Pajunk Needle Gauge: 21 Ultrasound used to visualize needle placement: Yes Ultrasound used to observe medication spread: Yes Injectate: 0.5% Ropivacaine (see comment for volume) (20 ml plus Dexamethasone 10 mg) Blood Aspirated: No Pain Paresthesia on Injection Noted: No Resistance on Injection: Normal Image Stored and Saved: Yes Events: Uneventful and Well Tolerated
[2020-04-16] MEDS ORDERED: GLYCOPYRROLATE 0.2 MG/ML 2 ML VIAL ONE (07:30)
[2020-04-16] MEDS ORDERED: fentaNYL (PF) 50 MCG/ML 2 ML AMP ONE (07:30)
[2020-04-16] MEDS ORDERED: NEOSTIGMINE 1 MG/ML 10 ML VIAL ONE (07:30)
[2020-04-16] MEDS ORDERED: LIDOCAINE 1% INJ 10MG/ML (20 ML MDV) ONE (07:30)
[2020-04-16] MEDS ORDERED: ePHEDrine SULFATE/0.9% NACL/PF 50 MG/5 ML SYRINGE IV ONE (07:30)
[2020-04-16] MEDS ORDERED: ROCURONIUM 10 MG/ML (10 ML VIAL) IV ONE (07:30)
[2020-04-16] MEDS ORDERED: PROPOFOL 10 MG/ML 20 ML VIAL IV ONE (07:30)
[2020-04-16] MEDS ORDERED: DEXAMETHASONE SOD PHOSPHATE 4 MG/ML 1 ML VIAL ONE (07:30)
[2020-04-16] MEDS ORDERED: SUCCINYLCHOLINE CHLORIDE 100 MG/5 ML SYR IV ONE (07:30)
[2020-04-16] MEDS ORDERED: ROPIVACAINE 5 MG/ML 30 ML VIAL ONE (07:30)
[2020-04-16] MEDS ORDERED: LIDOCAINE 1%-EPI 1:100,000 20 ML VIAL SQ ONE (07:56)
[2020-04-16 09:06] VITALS: TEMP 97.7
[2020-04-16] MEDS ORDERED: DEXAMETHASONE SOD PHOSPHATE 10 MG/ML 1 ML VIAL IV PRN (09:18)
[2020-04-16] MEDS ORDERED: diphenhydrAMINE 50 MG/ML 1 ML VIAL IVP PRN (09:18)
[2020-04-16 09:20] VITALS: RESP 16
--- NOTE | 2020-04-16 09:46 | P.OP ---
Date of Procedure: 04/16/20 Description of Procedure: SURGEON: DULCE MARIA MACK MD PREOPERATIVE DIAGNOSES: 1. Left inguinal hernia, recurrent POSTOPERATIVE DIAGNOSES: 1. Left inguinal hernia, obturator hernia 2. Left pelvic adhesions 3. Left obturator lipoma, 2 cm 4. Sigmoid diverticulosis OPERATION: 1. Robotic assisted da Torsten Xi laparoscopic repair of incarcerated left inguinal hernia with repair using ventralight ST mesh, 11.4 cm. 2. Robotic assisted da Torsten Xi laparoscopic lysis of adhesions 4. Excision of subfascial left obturator lipoma 2 cm ANESTHESIA: General with local anesthetic, abdominal block ESTIMATED BLOOD LOSS: 5 mL. SPECIMENS REMOVED: 1. Left obturator hernia sac and lipoma COMPLICATIONS: None. FINDINGS: 1. New left obturator hernia, 3 cm in size, with previous indirect hernia repair intact 2. Features of sigmoid diverticulosis. INDICATIONS: The patient is a 75-year-old female who presents with recurrent left inguinal swelling. She had previous left inguinal hernia repair 1 year ago. Laparoscopic versus open and robotic approaches were discussed. Benefits and risks including bleeding, infection, and chronic groin pain were reviewed. Placement of mesh was also described. Informed consent was obtained. DESCRIPTION: In the preoperative area, the patient was marked with indelible marker along the left groin. The patient was brought to the operating room and initially laid in supine position. After general induction, the abdomen had been prepped and draped in standard sterile fashion. Ioban draping was also placed. Prior to incision, a timeout protocol was confirmed with surgical team regarding patient's name including procedures to be performed and location along the left groin. Initial positioning for the robotic assisted ports were selected whereby 20 cm superior to the target anatomy, 0 degree 5 mm laparoscopic trocar entry was performed at the left upper quadrant. The abdomen was insufflated to 15 mmHg which she had tolerated well. Diagnostic laparoscopy demonstrated a defect along the left groin. No defects were identified along the right groin. A large left obturator inguinal defect was identified medial to the left lateral umbilical fold. Size of defect 3 cm. Previous hernia repair of indirect hernia was intact. Next, along the epigastrium, 8 mm robot trocar was placed. A 12-mm robotic trocar was placed under direct visualization at the right upper quadrant. The 5 mm port was exchanged for a 8 mm trocar. All trocars were positioned 10-cm apart from each other. The [employer] K[employer] XI robot was primed, draped, prepared for docking along the left side of the patient. I then went to the Listia Xi console. The funeral home assistant was at bedside for exchange of the robot arms and equipment. At the left groin, the peritoneum was scored over the 3 cm defect. The hernia sac was evaginated whereby the peritoneum was scored using Endo scissors with cautery. A 2 cm subfascial obturator canal tumor was excised and evaginated into the peritoneal cavity using vessel sealer. Once completely reduced into the abdominal cavity, the peritoneal sac of the hernia was stripped. The sac was resected and then passed off for further pathological analysis. The size of the hernia defect was 3 cm with intraoperative films obtained. Using a nonabsorbable 2-0 VLOC, the peritoneal defect of the left obturator hernia site was closed using a pursestring suture. The defect was found to be completely closed with complete reduction of the left inguinal hernia was confirmed. As an onlay, an 11.[address] mesh by [employer] was cut in half and entered into the abdominal cavity via the 8 mm trocar. The mesh was tacked to the pelvis using nonabsorbable 2-0 VLOC 9-inch length sutures. At the hernia site, peritoneal adhesions of the left pelvis for dissected free using sutures cautery. Features of sigmoid diverticulosis was confirmed. Hemostasis was checked prior to undocking the robot. The robot was undocked from the patient's bedside. I then rescrubbed into the case. The specimen was removed from the abdominal cavity from the right upper quadrant port site. Insufflation was released from the abdominal cavity and all instruments were removed from the abdominal cavity. The rest of incisions were reapproximated using 4-0 Monocryl in a running subcuticular fashion. Incisions were cleansed using dilute hydrogen peroxide. Exofin was applied to the skin. At the end of the procedure, the needle, sponge and instrument counts had been verified correct by the business office technician. The patient had tolerated the procedure well and was taken to the postanesthesia care unit in stable condition. Intraoperative findings were described to the patient's family who were pleased with the level of care. Plan - Discharge Summary Discharge Rx Participant: Yes New Discharge Prescriptions: New Ibuprofen [Motrin] 600 mg PO Q8HR PRN #30 tab PRN Reason: Pain Continue Pravastatin Sodium [Pravachol] 20 mg PO DAILY Acetaminophen Tab [Tylenol] 500 mg PO Q6H PRN #30 tablet PRN Reason: Pain Multivitamins, Thera [Multivitamin (formulary)] 1 tab PO DAILY Ascorbic Acid [Vitamin C] 500 mg PO DAILY Ubidecarenone [Co Q-10] 100 mg PO DAILY Discharge Medication List Pravastatin Sodium [Pravachol] 20 mg PO DAILY 03/08/19 [History] Acetaminophen Tab [Tylenol] 500 mg PO Q6H PRN #30 tablet 06/02/19 [Rx] Ascorbic Acid [Vitamin C] 500 mg PO DAILY 04/12/20 [History] Multivitamins, Thera [Multivitamin (formulary)] 1 tab PO DAILY 04/12/20 [History] Ubidecarenone [Co Q-10] 100 mg PO DAILY 04/12/20 [History] Ibuprofen [Motrin] 600 mg PO Q8HR PRN #30 tab 04/16/20 [Rx] Follow up Appointment(s)/Referral(s): Dulce Maria Mack MD [STAFF PHYSICIAN] - 04/24/20 Patient Instructions/Handouts: Inguinal Hernia Repair (DC), Laparoscopic Herniorrhaphy (DC) Activity/Diet/Wound Care/Special Instructions: No lifting for 4 pounds in 4 weeks, May 17. October shower. No bathtub soaks for 2 weeks, Apr 30. Diet as tolerated. Use Tylenol and ibuprofen/Aleve scheduled for the next 24-48 hours for best pain relief. Use ice along incisions for the today to prevent swelling. Discharge Disposition: HOME SELF-CARE
[2020-04-16] MEDS ORDERED: ONDANSETRON 4 MG/2 ML VIAL ONE (10:39)
[2020-04-16 12:58] VITALS: BP 115/73; PULSE 53
== END 2020-04-16 13:04 | disposition home or self-care (01) ==
LOC: OR 05:52
PROVIDERS: ATTEND Surgery Plastic and Reconstructive Surgery
DX: K40.91 Unilateral inguinal hernia, without obstruction or gangrene, recurrent (principal); N73.6 Female pelvic peritoneal adhesions (postinfective); D17.79 Benign lipomatous neoplasm of other sites; K57.30 Diverticulosis of large intestine without perforation or abscess without bleeding; E78.5 Hyperlipidemia, unspecified; Z91.041 Radiographic dye allergy status; Z88.5 Allergy status to narcotic agent; Z80.49 Family history of malignant neoplasm of other genital organs; Z79.899 Other long term (current) drug therapy; Z98.51 Tubal ligation status; Z98.890 Other specified postprocedural states; Z80.9 Family history of malignant neoplasm, unspecified; Z88.8 Allergy status to other drugs, medicaments and biological substances
CPT/HCPCS: 64486; 49651; C1781; J2250; J1644; J1100 ×2; J2710; J0690; J2405; J2001; J3010; J2795; J0330; J2704; J1170; 88302

== ENCOUNTER → 2021-02-21 | Outpatient (CLI) | payer BC ==
--- NOTE | 2021-02-25 11:56 | MM ---
Reason for exam: screening (asymptomatic). Last mammogram was performed 1 year and 2 months ago. History: Patient is postmenopausal and has history of high-risk lesion on a previous biopsy at age 63. High risk core biopsy of the right breast, June 2008. Benign right US cyst aspiration of the right breast, November 18, 2007. Took estrogen for 8 years beginning at age 55. Took progesterone for 8 years beginning at age 55. Physical Findings: A clinical breast exam by your physician is recommended on an annual basis and results should be correlated with mammographic findings. MG 3D Screening Mammo W/Cad Bilateral CC and MLO view(s) were taken. Prior study comparison: December 29, 2019, bilateral MG 3d screening mammo w/cad. December 06, 2018, bilateral MG 3d screening mammo w/cad. June 08, 2018, right breast MG 3d diag mammo w/cad RT. December 03, 2017, bilateral MG 3d screening mammo w/cad. November 27, 2016, mammogram, performed at [facility]. There are scattered fibroglandular densities. There is chronic nodularity in the right breast CC view, unchanged from 2017. No significant changes when compared with prior studies. ASSESSMENT: Benign, BI-RAD 2 RECOMMENDATION: Routine screening mammogram of both breasts in 1 year.
== END | disposition home or self-care (01) ==
LOC: RADMAMWWP 09:12
PROVIDERS: ATTEND Family Medicine
DX: Z12.31 Encounter for screening mammogram for malignant neoplasm of breast (principal); Z78.0 Asymptomatic menopausal state; Z79.818 Long term (current) use of other agents affecting estrogen receptors and estrogen levels
CPT/HCPCS: 77063; 77067

== ENCOUNTER → 2021-08-01 | Outpatient (CLI) | payer BC ==
--- NOTE | 2021-08-01 17:49 | CONS ---
CONSULTATION DATE OF SERVICE: 08/01/2021 This 76-year-old lady has been evaluated in [facility] for possible obstructive sleep apnea-hypopnea syndrome. HISTORY OF PRESENT ILLNESS/SLEEP-WAKE EVALUATION: Her usual sleep schedule is for about 8 or 9 hours per night. No problems with falling asleep. No TV in bedroom. She usually sleeps on the side position. She has mild snoring and awakening from sleep once with nocturia. Positive history of episodes of palpitations during the sleep. [place] Sleepiness Scale is zero. PAST MEDICAL HISTORY: Positive for hypertrophic cardiomyopathy, bradycardia, including bradycardia during sleep time. PAST SURGICAL HISTORY: Appendectomy and hernia repair. MEDICATIONS: 1. Pravastatin 20 mg once a day. 2. Alendronate 70 mg once a week. FAMILY HISTORY: Stroke, cancer, thyroid problems. REVIEW OF SYSTEMS: Bradycardia. No fevers. No double vision. No recent chest pain. No shortness of breath. No abdominal pain. No bleeding episodes. No blood in the urine. No seizure episodes. PHYSICAL EXAMINATION: GENERAL: Pleasant lady without distress. VITAL SIGNS: BP 139/67, HR 56, RR 16, height 5 feet 3 inches, weight 147, temperature 98.0, oxygen saturation at room air 97%. HEENT: PERRLA, EOMI, evaluation of oropharynx showed tongue protrudes midline. Extremely low position of soft palate; Mallampati IV. NECK: Supple, no JVD. Thyroid is not palpable. LUNGS: Clear to percussion and to auscultation. Good air exchange. No wheezing or rhonchi. HEART: S1, S2 regular. ABDOMEN: Soft and nontender. Bowel sounds are present. No organomegaly appreciated. EXTREMITIES: No clubbing or cyanosis. PARKING ASSISTANT: Awake, alert, and oriented X3. Cranial nerves 2 to 7 intact. There is no fasciculation or atrophy. noted. No focal deficits observed. IMPRESSION: 1. Snoring, awakenings from sleep with nocturia, extremely low position of soft palate, Mallampati IV; possible obstructive sleep apnea-hypopnea syndrome. 2. Episodes of bradycardia during sleep, which could be related to obstructive sleep apnea. 3. Hypertrophic cardiomyopathy. 4. Hyperlipidemia. 5. Status post appendectomy. 6. Status post hernia repair. PLAN: 1. Home sleep apnea test for evaluation of patient's breathing during sleep. 2. CPAP/BiPAP titration if sleep study confirms obstructive sleep apnea-hypopnea syndrome. 3. Preferable position during sleep on the side. 4. No driving if patient feels any sleepiness. 5. I will see patient for follow up visit to explain results of testing and following plan. Thank you very much for referring this patient for consultation. Sincerely, Robles Hdez MD, PhD, FAASM Diplomat of [place] [employer] Sleep Medicine Board of [place] [employer] Optoelectronic Technician of [facility] [place] MMODL / IJN: [id number] /
== END ==
LOC: SLEEP 15:11
PROVIDERS: ATTEND Internal Medicine
DX: G47.8 Other sleep disorders (principal); R06.83 Snoring; R35.1 Nocturia; R00.1 Bradycardia, unspecified; I42.2 Other hypertrophic cardiomyopathy; E78.5 Hyperlipidemia, unspecified; Z90.49 Acquired absence of other specified parts of digestive tract; Z98.890 Other specified postprocedural states; Z88.5 Allergy status to narcotic agent; Z88.8 Allergy status to other drugs, medicaments and biological substances; Z91.041 Radiographic dye allergy status
CPT/HCPCS: 99211

== ENCOUNTER → 2022-02-24 | Outpatient (CLI) | payer BC ==
--- NOTE | 2022-02-24 10:06 | MM ---
Reason for Exam: Screening (asymptomatic). Last screening mammogram was performed 12 month(s) ago. Patient History: Menarche at age 11. First Full-Term at age 22. Postmenopausal. Estrogen for 8 years from age 55 until age 63. Progesterone for 8 years from age 55 until age 63. 06/2008, High risk Core Biopsy on the right side. 11/18/2007, Benign Cyst Aspiration on the right side. Risk Values: Julieth 5 year model risk: 1.8%. NCI Lifetime model risk: 3.3%. Prior Study Comparison: 12/06/2018 Bilateral Screening Mammogram, [facility]. 12/29/2019 Bilateral Screening Mammogram, [facility]. 02/21/2021 Bilateral Screening Mammogram, [facility]. Tissue Density: The breast tissue is heterogeneously dense. This may lower the sensitivity of mammography. Findings: Analyzed By CAD. Scattered benign-appearing calcifications bilaterally. There is no suspicious group of microcalcifications or new suspicious mass in either breast. Overall Assessment: Benign, BI-RAD 2 Management: Screening Mammogram of both breasts in 1 year. A clinical breast exam by your physician is recommended on an annual basis and results should be correlated with mammographic findings. Electronically signed and approved by: Lauri Renee DO
== END | disposition home or self-care (01) ==
LOC: RADMAMWWP 08:44
PROVIDERS: ATTEND Internal Medicine
DX: Z12.31 Encounter for screening mammogram for malignant neoplasm of breast (principal); Z78.0 Asymptomatic menopausal state
CPT/HCPCS: 77063; 77067

== ENCOUNTER → 2022-10-22 | Outpatient (CLI) | payer BC ==
[2022-10-22 08:38] LABS: Basophils % (A) 0 %; Eosinophils # (A) 0.4 k/uL (0-0.7); Eosinophils % (A) 8 %; HCT 43.1 % (34.0-46.0); HGB 14.1 gm/dL (11.4-16.0); Lymphocytes # (A) 1.5 k/uL (1.0-4.8); Lymphocytes % (A) 29 %; MCH 29.7 pg (25.0-35.0); MCHC 32.8 g/dL (31.0-37.0); MCV 90.6 fL (80.0-100.0); Mean Platelet Volume 7.2; Monocytes # (A) 0.3 k/uL (0-1.0); Monocytes % (A) 5 %; Neutrophils # (A) 2.8 k/uL (1.3-7.7); Neutrophils % (A) 54 %; Platelet Count 245 k/uL (150-450); RBC 4.75 m/uL (3.80-5.40); RDW 12.7 % (11.5-15.5); WBC 5.1 k/uL (3.8-10.6)
[2022-10-22 08:42] LABS: Ionized Calcium 5.6 mg/dL (4.5-5.3)
[2022-10-22 11:31] LABS: Protein, Total 6.8 g/dL (6.2-8.2)
[2022-10-23 05:06] LABS: ALT 15 U/L (8-44); AST 23 U/L (13-35); African American GFR (CKD) 70.5 (60.0-200.0); Albumin 4.7 g/dL (3.8-4.9); Albumin/Globulin Ratio 1.88 (1.60-3.17); Alkaline Phosphatase 83 U/L (41-126); BUN/Creat Ratio 14.33 Ratio (12.00-20.00); Blood Urea Nitrogen 12.9 mg/dL (9.0-27.0); Calcium 10.8 mg/dL (8.7-10.3); Carbon Dioxide 19.3 mmol/L (20.0-27.5); Chloride 102 mmol/L (96-109); Chol/HDL Ratio 3.02 Ratio; Globulin 2.5 g/dL (1.6-3.3); Glucose 89 mg/dL (70-110); LDL Cholesterol,Calculated 123.7 mg/dL (0.0-131.0); Non-African American GFR(CKD) 60.8 (60.0-200.0); Potassium 4.6 mmol/L (3.5-5.5); Sodium 136 mmol/L (135-145); Total Protein 7.2 g/dL (6.2-8.2); VLDL Calculation 17.42 mg/dL (5.00-40.00)
[2022-10-23 19:37] LABS: Albumin 4.16 g/dL (3.80-4.90); Gamma Globulin 0.87 g/dL (0.70-1.50)
== END | disposition home or self-care (01) ==
LOC: LABWHC1 08:03
PROVIDERS: ATTEND Internal Medicine
DX: E78.5 Hyperlipidemia, unspecified (principal); E83.52 Hypercalcemia; M81.0 Age-related osteoporosis without current pathological fracture
CPT/HCPCS: 36415; 80053; 80061; 82306; 82330; 82652; 83970; 84165; 84443; 85025

== ENCOUNTER → 2024-03-15 | Outpatient (CLI) | payer BC ==
--- NOTE | 2024-03-17 10:18 | MM ---
Reason for Exam: Screening (asymptomatic). Last screening mammogram was performed 12 month(s) ago. Patient History: Menarche at age 11. First Full-Term at age 22. Postmenopausal. Patient has history of breast feeding. Estrogen for 8 years from age 55 until age 63. Progesterone for 8 years from age 55 until age 63. 06/2008, High risk Core Biopsy on the right side. 11/18/2007, Benign Cyst Aspiration on the right side. Mother had ovarian cancer at or over age 50. Risk Values: Julieth 5 year model risk: 1.7%. NCI Lifetime model risk: 2.7%. Prior Study Comparison: 02/21/2021 Bilateral Screening Mammogram, [facility]. 02/24/2022 Bilateral MG 3D screening mammo w/cad, [facility]. 03/11/2023 Bilateral MG 3D screening mammo w/cad, [facility]. Tissue Density: There are scattered areas of fibroglandular density. Findings: Analyzed By CAD. Right breast: There is no suspicious group of microcalcifications or new suspicious mass. Benign-appearing calcifications right breast. Left breast: There is no suspicious group of microcalcifications or new suspicious mass. Benign-appearing calcifications left breast. Overall Assessment: Benign, BI-RAD 2 Management: Screening Mammogram of both breasts in [address] [facility] will attempt to contact patient to return for supplemental views and ultrasound if indicated. Patient should continue monthly self-breast exams. A clinical breast exam by your physician is recommended on an annual basis. This exam should not preclude additional follow-up of suspicious palpable abnormalities. Note on Julieth scores and lifetime risk: 1. A Julieth score greater than 3% is considered moderate risk. If this is the case, consider specialist referral to assess eligibility for a risk reducing agent. 2. If overall lifetime risk for the development of breast cancer is 20% or higher, the patient may qualify for future screening with alternating mammogram and breast MRI. [facility], , 03/17/2024 9:50 AM. Electronically signed and approved by: Lauri Renee DO
== END | disposition home or self-care (01) ==
LOC: RADMAMWWP 09:18
PROVIDERS: ATTEND Internal Medicine
DX: Z12.31 Encounter for screening mammogram for malignant neoplasm of breast
CPT/HCPCS: 77063; 77067

== ENCOUNTER → 2024-09-12 | Outpatient (CLI) | payer MEDICARE ==
--- NOTE | 2024-09-12 10:52 | XR ---
EXAMINATION TYPE: XR chest 2V DATE OF EXAM: 09/12/2024 10:41 AM COMPARISON: None CLINICAL INDICATION: Female, 79 years old with history of J45.909 UNSPECIFIED ASTHMA, UNCOMPLICATED; [facility] TECHNIQUE: XR chest 2V Frontal and lateral views of the chest. FINDINGS: Lungs/Pleura: There is no evidence of pleural effusion, focal consolidation, or pneumothorax. Pulmonary vascularity: Unremarkable. Heart/mediastinum: Cardiomediastinal silhouette is unremarkable. Electronic device with leads project ing over the left medial chest. Musculoskeletal: No acute osseous pathology. IMPRESSION: No acute cardiopulmonary disease/process. [facility], , 09/12/2024 10:49 AM
== END | disposition home or self-care (01) ==
LOC: RADXRMAIN 10:22
PROVIDERS: ATTEND Internal Medicine
DX: J45.909 Unspecified asthma, uncomplicated (principal)
CPT/HCPCS: 71046

== ENCOUNTER → 2024-11-16 | Outpatient (CLI) | payer MEDICARE ==
--- NOTE | 2024-11-16 11:28 | XR ---
EXAMINATION TYPE: XR chest 2V DATE OF EXAM: 11/16/2024 10:32 AM COMPARISON: 09/12/2024 CLINICAL INDICATION: Female, 79 years old with history of R06.2 WHEEZING, , TECHNIQUE: Frontal and lateral views FINDINGS: Borderline enlarged heart. Tortuous/ectatic thoracic aorta is similar. Hyperinflation. Strandy atelec tasis left base. No consolidation or pleural effusion. IMPRESSION: COPD and borderline cardiomegaly. No definite acute process. [facility], Workstation: [facility], 11/16/2024 11:26 AM
== END | disposition home or self-care (01) ==
LOC: RADXRMAIN 10:21
PROVIDERS: ATTEND Internal Medicine
DX: J44.9 Chronic obstructive pulmonary disease, unspecified (principal)
CPT/HCPCS: 71046

== ENCOUNTER 2024-12-21 20:31 | Inpatient (IN) | payer MEDICARE ==
[2024-12-21 20:56] LABS: Basophils # (A) 0.03 10*3/uL (0.00-0.10); Basophils % (A) 0.3 %; Eosinophils # (A) 0.02 10*3/uL (0.04-0.35); Eosinophils % (A) 0.2 %; HCT 38.9 % (37.2-46.3); HGB 13.1 g/dL (12.0-15.0); Lymphocytes # (A) 0.49 10*3/uL (0.90-5.00); Lymphocytes % (A) 5.0 %; MCH 30.5 pg (27.0-32.0); MCHC 33.7 g/dL (32.0-37.0); MCV 90.5 fL (80.0-97.0); Monocytes # (A) 0.54 10*3/uL (0.20-1.00); Monocytes % (A) 5.5 %; Neutrophils # (A) 8.69 10*3/uL (1.80-7.70); Neutrophils % (A) 88.6 %; Platelet Count 197 10*3/uL (140-440); RBC 4.30 10*6/uL (4.10-5.20); RDW 12.5 % (11.5-14.5); WBC 9.81 10*3/uL (4.50-10.00)
[2024-12-21 21:06] LABS: INR 1.0 (<1.2); Partial Thromboplastin Time 22.3 sec (22.0-30.0); Prothrombin Time 10.6 sec (10.0-12.5)
[2024-12-21 21:17] LABS: ALT 15 U/L (4-34); AST 26 U/L (14-36); African American GFR (CKD) 82 (>60 ml/min/1.73 sqM); Albumin 4.3 g/dL (3.5-5.0); Alkaline Phosphatase 80 U/L (38-126); Anion Gap 10 mmol/L; Blood Urea Nitrogen 14 mg/dL (7-17); Calcium 10.7 mg/dL (8.4-10.2); Carbon Dioxide 22 mmol/L (22-30); Chloride 103 mmol/L (98-107); Glucose 130 mg/dL (74-99); Non-African American GFR(CKD) 71 (>60 ml/min/1.73 sqM); Potassium 3.9 mmol/L (3.5-5.1); Sodium 135 mmol/L (137-145); Total Protein 6.5 g/dL (6.3-8.2)
--- NOTE | 2024-12-21 21:45 | ED ---
General Adult HPI - General Source: patient, family, RN notes reviewed Mode of arrival: ambulatory Limitations: no limitations <Edith Layne - Last Filed: 12/21/24 21:44> - General Source: patient, family, RN notes reviewed, old records reviewed Mode of arrival: ambulatory Limitations: no limitations - History of Present Illness -: hour(s) Quality: aching Consistency: intermittent Improves with: none Worsens with: movement Associated Symptoms: chest pain, cough, shortness of breath Treatments Prior to Arrival: none <Jean Sommer - Last Filed: 12/27/24 19:44> - General Chief complaint: Shortness of Breath Stated complaint: difficulty breathing Time Seen by Provider: 12/21/24 20:45 - History of Present Illness Initial comments: Quick [id number] female with history of allergy induced asthma presenting to the emergency department for complaints of worsening difficulty breathing, productive cough and shortness of breath over the past few days. States that she had a fever earlier today. Denies chest pain. (Edith Layne) This is an 79-year-old female to the ER for evaluation of fever today. Fever with shortness of breath, concern for worsening asthma. No known sick contacts no travel history no real chest pain just persistent fever with shortness of breath (Jean Sommer) - Related Data Home Medications Medication Instructions Recorded Confirmed Pravastatin Sodium [Pravachol] 20 mg PO HS 03/08/19 12/22/24 Ascorbic Acid [Vitamin C] 1,000 mg PO DAILY 04/12/20 12/22/24 Ubidecarenone [Co Q-10] 100 mg PO DAILY 04/12/20 12/22/24 Albuterol Sulfate [Albuterol 2 puff INHALATION RT-Q4H PRN 12/22/24 12/22/24 Sulfate Hfa] Fluticasone Nasal [place] [Flonase 1 spray EA NOSTRIL DAILY 12/22/24 12/22/24 Nasal [place]] Fluticasone Propion/Salmeterol 1 puff INHALATION RT-BID 12/22/24 12/22/24 [Advair 100-50 Diskus] Ibandronate Sodium [Boniva] 150 mg PO QMONTHLY 12/22/24 12/22/24 Previous Rx's Medication Instructions Recorded Apixaban [Eliquis] 5 mg PO BID #30 tab 12/27/24 Famotidine [Pepcid] 20 mg PO DAILY #30 tab 12/27/24 Metoprolol Succinate (ER) [Toprol 50 mg PO BID #60 tab 12/27/24 XL] Allergies Allergy/AdvReac Type Severity Reaction Status Date / Time povidone-iodine Allergy ITCHINH, Verified 12/22/24 09:18 [From Betadine] RED, RASH soap [From Betadine] Allergy ITCHINH, Verified 12/22/24 09:18 RED, RASH codeine AdvReac Confusion Verified 12/22/24 09:18 hydromorphone [From Dilaudid] AdvReac Confusion Verified 12/22/24 21:11 Review of Systems ROS Other: All systems not noted in ROS Statement are negative. <Edith Layen - Last Filed: 12/21/24 21:44> ROS Other: All systems not noted in ROS Statement are negative. <Jean Sommer - Last Filed: 12/27/24 19:44> ROS Statement: Those systems with pertinent positive or pertinent negative responses have been documented in the HPI. Past Medical History Past Medical History: Asthma Additional Past Medical History / Comment(s): RECURRENT LT INGUINAL HERNIA History of Any Multi-Drug Resistant Organisms: None Reported Past Surgical History: Appendectomy, Breast Surgery, Hernia Repair, Tonsillectomy, Tubal Ligation Additional Past Surgical History / Comment(s): BREAST BIOPSY RIGHT. LT INGUINAL HERNIA 05/2019 WITH LYSIS OF ADHESIONS. COLONOSCOPY Past Anesthesia/Blood Transfusion Reactions: Postoperative Nausea & Vomiting (PONV) Past Psychological History: No Psychological Hx Reported Smoking Status: Never smoker Past Alcohol Use History: None Reported Past Drug Use History: None Reported - Past Family History Mother Family Medical History: Cancer Additional Family Medical History / Comment(s): CERVICAL CANCER Father Family Medical History: Cancer <Edith Layne - Last Filed: 12/21/24 21:44> General Exam Limitations: no limitations <Edith Layne - Last Filed: 12/21/24 21:44> General appearance: alert, in no apparent distress Head exam: Present: atraumatic, normocephalic, normal inspection Eye exam: Present: normal appearance, PERRL, EOMI. Absent: scleral icterus, conjunctival injection, periorbital swelling ENT exam: Present: normal exam, mucous membranes moist Neck exam: Present: normal inspection. Absent: tenderness, meningismus, lymphadenopathy Respiratory exam: Present: normal lung sounds bilaterally. Absent: respiratory distress, wheezes, rales, rhonchi, stridor Cardiovascular Exam: Present: regular rate, normal rhythm, normal heart sounds. Absent: systolic murmur, diastolic murmur, rubs, gallop, clicks GI/Abdominal exam: Present: soft, normal bowel sounds. Absent: distended, tenderness, guarding, rebound, rigid Extremities exam: Present: normal inspection, full ROM, normal capillary refill. Absent: tenderness, pedal edema, joint swelling, calf tenderness Back exam: Present: normal inspection Neurological exam: Present: alert, oriented X3, CN II-XII intact Psychiatric exam: Present: normal affect, normal mood Skin exam: Present: warm, dry, intact, normal color. Absent: rash <Jean Sommer - Last Filed: 12/27/24 19:44> - General Exam Comments Initial Comments: Visual Physical Exam Vital signs reviewed General: Well-appearing, nontoxic, no acute distress. Head: Normocephalic, atraumatic Eyes: PERRLA, EOMI ENT: Airway patent Chest: Nonlabored breathing Skin: No visual rash, normal skin tone Neuro: Alert and oriented 3 Musculoskeletal: No gross abnormalities (Stieler,Edith) Course <Jean Sommer - Last Filed: 12/27/24 19:44> Vital Signs 12/21/24 12/21/24 12/21/24 20:39 23:30 23:31 Temperature 100.4 F H 99.5 F Pulse Rate 93 72 Respiratory 18 18 18 Rate Blood Pressure 130/78 131/65 O2 Sat by Pulse 93 L 94 L Oximetry 12/22/24 12/22/24 12/22/24 00:00 02:03 02:29 Temperature 99.6 F 99.7 F H Pulse Rate 77 71 73 Respiratory 18 18 Rate Blood Pressure 124/68 111/58 O2 Sat by Pulse 98 97 Oximetry 12/22/24 12/22/24 12/22/24 02:36 04:00 08:45 Temperature 99.4 F Pulse Rate 81 75 84 Respiratory 18 Rate Blood Pressure 111/74 O2 Sat by Pulse 98 94 L Oximetry 12/22/24 12/22/24 12/22/24 08:54 11:40 11:50 Temperature Pulse Rate 93 83 88 Respiratory Rate Blood Pressure O2 Sat by Pulse Oximetry 12/22/24 12/22/24 12/22/24 13:00 13:37 14:38 Temperature 98.3 F Pulse Rate 88 80 Respiratory 16 18 Rate Blood Pressure 92/50 O2 Sat by Pulse 96 96 Oximetry 12/22/24 12/22/24 12/22/24 16:04 16:14 17:24 Temperature 98.3 F Pulse Rate 89 80 84 Respiratory 16 Rate Blood Pressure 116/64 O2 Sat by Pulse 95 Oximetry - Reevaluation(s) Reevaluation #1: 12/22/24 03:24 Medical records reviewed (Jean Sommer) Reevaluation #2: 12/22/24 03:25 Patient's symptoms are improving here in the ER pulse ox is on the lower end (Jean Sommer) Reevaluation #3: 12/22/24 03:25 Patient informed of results questions answered (Jean Sommer) Reevaluation #4: Was pt. sent in by a medical professional or institution (, PA, SATELLITE DISH INSTALLER, urgent care, hospital, or correction...) When possible be specific @ -no Did you speak to anyone other than the patient for history (EMS, parent, family, police, friend...)? What history was obtained from this source @ -no Did you review nursing and triage notes (agree or disagree)? Why? @ -agree Are old charts reviewed (outside hosp., previous admission, EMS record, old EKG, old radiological studies, urgent care reports/EKG's, correction records)? Report findings @ -yes Differential Diagnosis (chest pain, altered mental status, abdominal pain women, abdominal pain men, vaginal bleeding, weakness, fever, dyspnea, syncope, headache, dizziness, GI bleed, back pain, seizure, CVA, palpatations, mental health, musculoskeletal)? @ -prior EKG interpreted by me (3pts min.). @ -yes X-rays interpreted by me (1pt min.). @ -yes positive for pneumonia CT interpreted by me (1pt min.). @ -no U/S interpreted by me (1pt. min.). @ -no What testing was considered but not performed or refused? (CT, X-rays, U/S, labs)? Why? @ -none What meds were considered but not given or refused? Why? @ -none Did you discuss the management of the patient with other professionals (professionals i.e. DrSaleem, PA, SATELLITE DISH INSTALLER, lab, RT, psych nurse, director social welfare, ruby rails developer, teacher, chief human resources officer, rn field case manager)? Give summary @ -no Was smoking cessation discussed for >3mins.? @ -no Was critical care preformed (if so, how long)? @ -no Were there social determinants of health that impacted care today? How? (H omelessness, low income, unemployed, alcoholism, drug addiction, transportation, low edu. Level, literacy, decrease access to med. care, shelter, rehab)? @ -none Was there de-escalation of care discussed even if they declined (Discuss DNR or withdrawal of care, Hospice)? DNR status @ -no What co-morbidities impacted this encounter? (DM, HTN, Smoking, COPD, CAD, Cancer, CVA, ARF, Chemo, Hep., AIDS, mental health diagnosis, sleep apnea, morbid obesity)? @ -none Was patient admitted / discharged? Hospital course, mention meds given and route, prescriptions, significant lab abnormalities, going to OR and other pertinent info. @ - 79 female to ER underlying asthma patient will admit for fever pneumonia Admitted Undiagnosed new problem with uncertain prognosis? @ -no Drug Therapy requiring intensive monitoring for toxicity (Heparin, Nitro, Insulin, Cardizem)? @ -no Were any procedures done? @ -no Diagnosis/symptom? @ -Fever pneumonia Acute, or Chronic, or Acute on Chronic? @ -Acute Uncomplicated (without systemic symptoms) or Complicated (systemic symptoms)? @ -Complicated Side effects of treatment? @ -no Exacerbation, Progression, or Severe Exacerbation? @ -exacerbation Poses a threat to life or bodily function? How? (Chest pain, USA, GA, pneumonia, PE, COPD, DKA, ARF, appy, cholecystitis, CVA, Diverticulitis, Homicidal, Suicidal, threat to staff... and all critical care pts) @ -yes extremes of age (Jean Sommer) Reevaluation #5: Differential Fever: Pneumonia, viral URI, endocarditis, myocarditis, pericarditis, otitis, sin usitis, peritonsillar Abscess, retropharyngeal Abscess, epiglottitis, peritonitis, appendicitis, Amparo cystitis, diverticulitis, hepatitis, colitis, UTI, PID, TOA, pyelonephritis, prostatitis, epididymitis, meningitis, encephalitis, pulmonary embolism, CVA, thyroid storm, pancreatitis, adrenal crisis, cavernous sinus thrombosis, this is not meant to be an all-inclusive list. Differential Dyspnea: Coronary syndrome, arrhythmia, tamponade, asthma, COPD, pulmonary embolism, pneumonia, pneumothorax, pulmonary effusion, anaphylaxis, diabetic ketoacidosis, flailed chest, pulmonary contusion, diaphragmatic rupture, anemia, neuromuscular, this is not meant to be an all-inclusive list. (Jean Sommer) - Consultations Consultation #1: Spoke with sound who agrees to admit this patient (Jean Sommer) EKG Findings - EKG Comments: EKG Findings:: EKG Sinus 90 WI 160 QRS 90 QTc 419 - EKG Results: EKG: interpreted by ERMD <Jean Sommer - Last Filed: 12/27/24 19:44> Medical Decision Making - Lab Data Result diagrams: 12/21/24 20:47 12/21/24 20:47 <Edith Layne - Last Filed: 12/21/24 21:44> - Lab Data Result diagrams: 12/27/24 06:31 12/27/24 06:31 - EKG Data -: EKG Interpreted by Ga - Radiology Data Radiology results: report reviewed (Chest x-ray is positive for pneumonia), image reviewed <Jean Sommer - Last Filed: 12/27/24 19:44> - Medical Decision Making I completed the quick note portion of this chart signed Edith Layne PA-C (Edith Layne) 79 female to ER underlying asthma patient will admit for fever pneumonia (Jean Sommer) - Lab Data Lab Results 12/21/24 12/21/24 12/21/24 Range/Units 20:47 20:47 20:47 WBC 9.81 (4.50-10.00) 10*3/uL RBC 4.30 (4.10-5.20) 10*6/uL Hgb 13.1 (12.0-15.0) g/dL Hct 38.9 (37.2-46.3) % MCV 90.5 (80.0-97.0) fL MCH 30.5 (27.0-32.0) pg MCHC 33.7 (32.0-37.0) g/dL Plt Count 197 (140-440) 10*3/uL MPV 9.6 (9.5-12.2) fL Immature Gran % (Auto) 0.4 % Neutrophils % 88.6 % Lymphocytes % 5.0 % Monocytes % 5.5 % Eosinophils % 0.2 % Basophils % 0.3 % Immature Gran # 0.04 (0.00-0.04) 10*3/uL Neutrophils # 8.69 H (1.80-7.70) 10*3/uL Lymphocytes # 0.49 L (0.90-5.00) 10*3/uL Monocytes # 0.54 (0.20-1.00) 10*3/uL Eosinophils # 0.02 L (0.04-0.35) 10*3/uL Basophils # 0.03 (0.00-0.10) 10*3/uL PT 10.6 (10.0-12.5) sec INR 1.0 (<1.2) APTT 22.3 (22.0-30.0) sec Sodium 135 L (137-145) mmol/L Potassium 3.9 (3.5-5.1) mmol/L Chloride 103 (98-107) mmol/L Carbon Dioxide 22 (22-30) mmol/L Anion Gap 10 mmol/L BUN 14 (7-17) mg/dL Creatinine 0.79 (0.52-1.04) mg/dL Est GFR (CKD-EPI)AfAm 82 (>60 ml/min/1.73 sqM) Est GFR (CKD-EPI)NonAf 71 (>60 ml/min/1.73 sqM) Glucose 130 H (74-99) mg/dL Plasma Lactic Acid Atif (0.7-2.0) mmol/L Calcium 10.7 H (8.4-10.2) mg/dL Total Bilirubin 0.7 (0.2-1.3) mg/dL AST 26 (14-36) U/L ALT 15 (4-34) U/L Alkaline Phosphatase 80 (38-126) U/L Troponin I (0.000-0.034) ng/mL Total Protein 6.5 (6.3-8.2) g/dL Albumin 4.3 (3.5-5.0) g/dL Influenza Type A (PCR) (Not Detectd) Influenza Type B (PCR) (Not Detectd) RSV (PCR) (Not Detectd) SARS-CoV-2 (PCR) (Not Detectd) 12/21/24 12/21/24 12/21/24 Range/Units 20:47 21:02 23:28 WBC (4.50-10.00) 10*3/uL RBC (4.10-5.20) 10*6/uL Hgb (12.0-15.0) g/dL Hct (37.2-46.3) % MCV (80.0-97.0) fL MCH (27.0-32.0) pg MCHC (32.0-37.0) g/dL Plt Count (140-440) 10*3/uL MPV (9.5-12.2) fL Immature Gran % (Auto) % Neutrophils % % Lymphocytes % % Monocytes % % Eosinophils % % Basophils % % Immature Gran # (0.00-0.04) 10*3/uL Neutrophils # (1.80-7.70) 10*3/uL Lymphocytes # (0.90-5.00) 10*3/uL Monocytes # (0.20-1.00) 10*3/uL Eosinophils # (0.04-0.35) 10*3/uL Basophils # (0.00-0.10) 10*3/uL PT (10.0-12.5) sec INR (<1.2) APTT (22.0-30.0) sec Sodium (137-145) mmol/L Potassium (3.5-5.1) mmol/L Chloride (98-107) mmol/L Carbon Dioxide (22-30) mmol/L Anion Gap mmol/L BUN (7-17) mg/dL Creatinine (0.52-1.04) mg/dL Est GFR (CKD-EPI)AfAm (>60 ml/min/1.73 sqM) Est GFR (CKD-EPI)NonAf (>60 ml/min/1.73 sqM) Glucose (74-99) mg/dL Plasma Lactic Acid Atif 1.2 (0.7-2.0) mmol/L Calcium (8.4-10.2) mg/dL Total Bilirubin (0.2-1.3) mg/dL AST (14-36) U/L ALT (4-34) U/L Alkaline Phosphatase (38-126) U/L Troponin I 0.022 (0.000-0.034) ng/mL Total Protein (6.3-8.2) g/dL Albumin (3.5-5.0) g/dL Influenza Type A (PCR) Not Detected (Not Detectd) Influenza Type B (PCR) Not Detected (Not Detectd) RSV (PCR) Not Detected (Not Detectd) SARS-CoV-2 (PCR) Not Detected (Not Detectd) Disposition <Edith Layne - Last Filed: 12/21/24 21:44> Is patient prescribed a controlled substance at d/c from ED?: No Time of Disposition: 01:00 <Jean Sommer - Last Filed: 12/27/24 19:44> Clinical Impression: Community acquired pneumonia, Fever, Asthma with acute exacerbation Disposition: ADMITTED IP TO THIS HOSP Condition: Fair
[2024-12-21 21:50] LABS: RSV Not Detected (Not Detectd)
--- NOTE | 2024-12-21 22:19 | XR ---
EXAMINATION TYPE: XR chest 2V DATE OF EXAM: 12/21/2024 9:16 PM COMPARISON: 11/16/2024 CLINICAL INDICATION: Female, 79 years old with history of difficulty breathing, TECHNIQUE: XR chest 2V view(s) obtained. FINDINGS: The heart size is normal. The pulmonary vasculature is normal. There is a right middle lobe infiltrate. Correlate for atelectasis or pneumonia. IMPRESSION: 1. Right middle lobe infiltrate. Correlate for atelectasis or pneumonia. [facility], , 12/21/2024 10:17 PM
[2024-12-22] MEDS ORDERED: PNEUMONIA PROTOCOL UTILIZED 1 EACH MISC PO PRN (01:48)
[2024-12-22] MEDS: SODIUM CHLORIDE 0.9% 1,000 ML IV SCH (02:05)
[2024-12-22] MEDS: IPRATROPIUM-ALBUTEROL 3 ML NEB INHALATION STA (02:28)
[2024-12-22] MEDS: AZITHROMYCIN 500 MG in SODIUM CHLORIDE 0.9% 250 ML IVPB STA (03:24)
--- NOTE | 2024-12-22 05:10 | P.HPIM ---
History of Present Illness H&P Date: 12/22/24 Chief Complaint: Coughing and breathing issues 79-year-old female with asthma presented with coughing and breathing issues. She has a history of seasonal asthma and was previously treated for this condition in October. The patient reported wheezing and difficulty breathing. She also mentioned having a heart condition managed by Dr. Ang. She has been experiencing coughing with yellowish to greenish phlegm. She reported having a fever today and gets winded easily when walking. The patient denies chest pain when breathing or coughing and has no problems lying down. No recent travel or exposure to sick individuals was reported. She denies smoking. She reports feeling strong and safe at home, able to walk around and do things independently. review of systems Pertinent positives as noted in HPI. All other systems were reviewed and are negative Constitutional: Positive for fever and chills today. Respiratory: Positive for coughing, wheezing, and shortness of breath with exertion. Denies chest pain when breathing or coughing. Cardiovascular: Denies chest pain. Musculoskeletal: Denies leg swelling. Neurological: Alert and oriented, able to ambulate independently. on exam Constitutional: No acute distress, conversant, pleasant Eyes: Anicteric sclerae, moist conjunctiva, Pupils equal round reactive to light ENMT: NC/AT Oropharynx clear, no erythema, or exudates Neck: Supple, no masses, or JVD No carotid bruits No thyromegaly Lungs: Audible breath sounds bilaterally with scattered expiratory wheezing and rales at the right midlung and lower lung Clear to percussion Normal respiratory effort, no accessory muscle use Cardiovascular: Heart regular in rate and rhythm, Systolic murmurs, no gallops, or rubs No peripheral edema Abdominal: Soft Nontender, no guarding, rebound or rigidity Abdomen moving with respiration Normoactive bowel sounds Extremities: No digital cyanosis No clubbing Pedal pulses intact and symmetrical Radial pulses intact and symmetrical No calf tenderness Psychiatric: Alert and oriented to person, place and time Appropriate affect Neuro Muscles Strength 5/5 in all 4 extremities Sensation to light touch grossly present throughout Cranial nerves II-XII grossly intact Past Medical History Past Medical History: Asthma Additional Past Medical History / Comment(s): RECURRENT LT INGUINAL HERNIA History of Any Multi-Drug Resistant Organisms: None Reported Past Surgical History: Appendectomy, Breast Surgery, Hernia Repair, Tonsillectomy, Tubal Ligation Additional Past Surgical History / Comment(s): BREAST BIOPSY RIGHT. LT INGUINAL HERNIA 05/2019 WITH LYSIS OF ADHESIONS. COLONOSCOPY Past Anesthesia/Blood Transfusion Reactions: Postoperative Nausea & Vomiting (PONV) Past Psychological History: No Psychological Hx Reported Smoking Status: Never smoker Past Alcohol Use History: None Reported Past Drug Use History: None Reported - Past Family History Mother Family Medical History: Cancer Additional Family Medical History / Comment(s): CERVICAL CANCER Father Family Medical History: Cancer Medications and Allergies Home Medications Medication Instructions Recorded Confirmed Type Pravastatin Sodium [Pravachol] 20 mg PO DAILY 03/08/19 04/16/20 History Acetaminophen Tab [Tylenol] 500 mg PO Q6H PRN #30 tablet 06/02/19 04/16/20 Rx Ascorbic Acid [Vitamin C] 500 mg PO DAILY 04/12/20 04/16/20 History Multivitamins, Thera [Multivitamin 1 tab PO DAILY 04/12/20 04/16/20 History (formulary)] Ubidecarenone [Co Q-10] 100 mg PO DAILY 04/12/20 04/16/20 History Ibuprofen [Motrin] 600 mg PO Q8HR PRN #30 tab 04/16/20 Rx Allergies Allergy/AdvReac Type Severity Reaction Status Date / Time codeine Allergy Confusion Verified 12/21/24 20:41 povidone-iodine AdvReac ITCHINH, Verified 12/21/24 20:41 [From Betadine] RED, RASH soap [From Betadine] AdvReac ITCHINH, Verified 12/21/24 20:41 RED, RASH Physical Exam Vitals: Vital Signs Temp Pulse Resp BP Pulse Ox 12/22/24 02:36 81 12/22/24 02:29 73 12/22/24 02:03 99.7 F H 71 18 111/58 97 12/22/24 00:00 99.6 F 77 18 124/68 98 12/21/24 23:31 18 12/21/24 23:30 99.5 F 72 18 131/65 94 L 12/21/24 20:39 100.4 F H 93 18 130/78 93 L Intake and Output 12/21/24 12/21/24 12/22/24 14:59 22:59 06:59 Other: Weight 65.771 kg Results CBC & Chem 7: 12/21/24 20:47 12/21/24 20:47 Labs: Abnormal Lab Results - Last 24 Hours (Table) 12/21/24 12/21/24 Range/Units 20:47 20:47 Neutrophils # 8.69 H (1.80-7.70) 10*3/uL Lymphocytes # 0.49 L (0.90-5.00) 10*3/uL Eosinophils # 0.02 L (0.04-0.35) 10*3/uL Sodium 135 L (137-145) mmol/L Glucose 130 H (74-99) mg/dL Calcium 10.7 H (8.4-10.2) mg/dL Assessment and Plan Assessment: 79-year-old female with seasonal asthma coming in with coughing and shortness of breath I discussed case with ED doctor and accepted the admission for suspected community-acquired pneumonia with anticipated length of stay less than 2 midnights Assessment: 1. Suspected pneumonia based on symptoms of cough with yellowish-greenish sputum, fever, and x-ray findings of a spot on the lung. 2. Exacerbation of underlying asthma, contributing to respiratory symptoms. 3. Chronic heart condition, patient cannot recall stable but requiring ongoing management. With cardiology EKG is unchanged compared to before with some lateral T wave inversions which is not new Plan: 1. Check blood cultures and sputum cultures check urine Legionella antigen, initiate antibiotic therapy for suspected pneumonia. Rocephin 2 g IV piggyback daily and azithromycin 500 IV piggyback daily 2. Continue current asthma medications (inhalers). And p.o. steroids prednisone 40 mg daily 3. Monitor oxygen saturation and respiratory status. 4. Anticipate discharge in 1-2 days if breathing improves and oxygen support is not required. 5. Follow up with primary care physician after discharge for ongoing management of asthma and heart condition. 6. Recommend pulmonary function tests as an outpatient to assess asthma control. 7. Advise patient to seek immediate medical attention if symptoms worsen or new symptoms develop. Full code DVT prophylaxis heparin 5000 units SQ twice daily GI prophylaxis Pepcid 20 mg p.o. daily Chest x-ray reviewed showed right middle lobe infiltrates EKG shows T wave inversion in lateral leads however this is not Persistent and ALT EKGs White count is 9.8 hemoglobin 13 unremarkable Sodium 135 potassium 3.9 BUN 14 creatinine 0.7 unremarkable Lactic acid 1.2 unremarkable Acute respiratory viral panel negative for COVID RSV and influenza Troponin is negative
[2024-12-22] MEDS: IPRATROPIUM-ALBUTEROL 3 ML NEB INHALATION PRN (08:44)
[2024-12-22] MEDS: PRAVASTATIN SODIUM 20 MG TAB PO SCH (09:10)
[2024-12-22] MEDS: HEPARIN SODIUM,PORCINE 5,000 UNIT/ML 1 ML VIAL SQ SCH (09:10)
[2024-12-22] MEDS: FAMOTIDINE 20 MG TAB PO SCH (09:10)
[2024-12-22] MEDS: predniSONE 20 MG TAB PO SCH (09:11)
[2024-12-23] MEDS: ACETAMINOPHEN TAB 500 MG TAB PO PRN (06:04)
--- NOTE | 2024-12-23 09:12 | XR ---
EXAMINATION TYPE: XR chest 1V portable DATE OF EXAM: 12/23/2024 7:18 AM COMPARISON: 12/21/2024 CLINICAL INDICATION: Female, 79 years old with history of pneumonia, , FINDINGS: There remains mild to moderately enlarged. Patient rotated towards the right altering the normal hear t and mediastinal contours. Hyperinflation. There are patchy bibasilar opacities, worsened now on the right. No sizable pleural effusion. IMPRESSION: Cardiomegaly, COPD, and worsened bibasilar opacities, especially on the right. Correlate for infectio us or aspiration pneumonitis. [facility], , 12/23/2024 9:09 AM
[2024-12-23] MEDS: AZITHROMYCIN 500 MG in SODIUM CHLORIDE 0.9% 250 ML IVPB SCH (10:36)
--- NOTE | 2024-12-23 16:17 | P.PN ---
Subjective Progress Note Date: 12/23/24 79 year old F with PMH Asthma, HDL, HOCM presents to the ED for productive cough and shortness of breath. In the ED she underwent extensive evaluation. BP 130/78, HR 93, T 100.4F, RR 18, 93% on RA. CBC, Coag panel, CMP significant for Na 135, glu 130, Ca 10.7. Trop 0.022. Lactc acid 1.2. CXR RML PNA. EKG sinus rhythm with PVCs. COVID, RSV, Flu neg. Legionella Ag neg. Patient was started on bronchodilators and Rocephin/Azithromycin, admitted for further workup and management. 12/23 Patient was seen and examined. Reports no changes in her breathing. Sputum Cx mod PMN, mod G+B, fever G+C. BCx prelim neg so far. 95% on 3L NC. CXR appears worse compared to yesterday. General: non toxic, no distress, appears at stated age Derm: warm, dry Head: atraumatic, normocephalic, symmetric Eyes: EOMI, no lid lag, anicteric sclera Mouth: no lip lesion, mucus membranes moist Cardiovascular: S1S2 reg, no murmur Lungs: Decreased BS bilateral with scattered wheezing, no rhonchi, no rales , no accessory muscle use Ext: no gross muscle atrophy, no edema, no contractures Neuro: no focal neuro deficits Psych: Alert, oriented, appropriate affect Based on my assessment of this patient, this patient meets a high complexity level of care. Community Acquired PNA: Continue Rocpehin 2g IV QD + Azithromycin 400 mg IV QD. Follow Sputum Cx + BCx. Obtain Pro-josue. Decrease NS from 100 to 20 cc/hr given history of HOCM. Consult Pulmonary. Asthma exacerbation: DuoNeb QID schduled and PRN SOB/wheezing. Prednisone 40 mg PO QD. HLD: Pravastatin 20 mg PO QHS. HOCM: Outpatient cardiology follow up. CODE STATUS: FULL CODE DVT Prophylaxis: Heparin SQ GI Prophylaxis: Designated medical POA if patient is not able to make medical decisions for themselves: I have reviewed the following bilingual sales consultant notes: I have reviewed the results of the following tests: CBC, BMP, Sputum Cx, BCx. I have ordered the following tests: CBC and BMP in the AM. Procal and CXR ordered in the AM as well. I have discussed the care of this patient with the following independent historian: Family at bedside. I have independently interpreted the following test below: CXR I have discussed the management of this patient with the following physician: Objective - Vital Signs Vital signs: Vital Signs Temp 98.3 F 12/23/24 13:12 Pulse 76 12/23/24 14:29 Resp 17 12/23/24 13:12 BP 132/78 12/23/24 13:12 Pulse Ox 95 12/23/24 14:19 FiO2 Intake & Output 12/22/24 12/23/24 12/23/24 18:59 06:59 18:59 Output Total 400 950 Balance -400 -950 Weight 65.771 kg Output: Urine 400 950 Other: Voiding Method Toilet - Labs CBC & Chem 7: 12/21/24 20:47 12/21/24 20:47 Labs: Microbiology - Last 24 Hours (Table) 12/22/24 02:06 Blood Culture - Preliminary Blood 12/22/24 11:42 Gram Stain - Preliminary Sputum Sputum Culture - Preliminary
[2024-12-23] MEDS: IPRATROPIUM-ALBUTEROL 3 ML NEB INHALATION SCH (18:21)
[2024-12-24] MEDS ORDERED: HEPARIN SODIUM 1,000 UN/ML (10ML VL) IV PRN (03:55)
[2024-12-24 04:27] LABS: HCT 36.9 % (37.2-46.3); HGB 11.9 g/dL (12.0-15.0); MCH 29.5 pg (27.0-32.0); MCHC 32.2 g/dL (32.0-37.0); MCV 91.6 fL (80.0-97.0); Platelet Count 196 10*3/uL (140-440); RBC 4.03 10*6/uL (4.10-5.20); RDW 12.7 % (11.5-14.5); WBC 9.11 10*3/uL (4.50-10.00)
[2024-12-24 04:40] LABS: African American GFR (CKD) >90 (>60 ml/min/1.73 sqM); Anion Gap 7 mmol/L; Blood Urea Nitrogen 10 mg/dL (7-17); Calcium 10.3 mg/dL (8.4-10.2); Carbon Dioxide 24 mmol/L (22-30); Chloride 106 mmol/L (98-107); Glucose 98 mg/dL (74-99); Non-African American GFR(CKD) 83 (>60 ml/min/1.73 sqM); Potassium 3.8 mmol/L (3.5-5.1); Sodium 137 mmol/L (137-145)
[2024-12-24 04:41] LABS: INR 0.9 (<1.2); Partial Thromboplastin Time 24.8 sec (22.0-30.0); Prothrombin Time 10.3 sec (10.0-12.5)
[2024-12-24] MEDS: HEPARIN SOD,PORK IN 0.45% NACL 25,000 UNIT in 0.45% NACL 1 250ML.BAG IV SCH (05:06)
[2024-12-24] MEDS: DILTIAZEM 125 MG in DEXTROSE 5% IN WATER 100 ML IV SCH (05:06)
[2024-12-24] MEDS: DILTIAZEM 5 MG/ML 5 ML VIAL IVP ONE (05:07)
[2024-12-24] MEDS: HEPARIN SODIUM 1,000 UN/ML (10ML VL) IV ONE (05:07)
--- NOTE | 2024-12-24 07:40 | XR ---
EXAMINATION TYPE: XR chest 1V portable DATE OF EXAM: 12/24/2024 6:58 AM COMPARISON: Chest radiographs from 12/23/2024. CLINICAL INDICATION: Female, 79 years old with history of PNA; TECHNIQUE: XR chest 1V portable Frontal view of the chest. FINDINGS: Lungs/Pleura: Prominent interstitial lung markings are seen scattered throughout the lungs. No eviden ce of focal consolidation, pneumothorax or pleural effusion. Pulmonary vascularity: Unremarkable. Heart/mediastinum: Cardiomediastinal silhouette is unremarkable. Musculoskeletal: No acute osseous pathology. IMPRESSION: Chronic changes without acute pulmonary process. No significant change from prior. [facility], , 12/24/2024 7:37 AM
[2024-12-24] MEDS: IPRATROPIUM-ALBUTEROL 3 ML NEB INHALATION SCH (09:19)
[2024-12-24] MEDS ORDERED: MAGNESIUM SULFATE-D5W PMX 1 GM in DEXTROSE/WATER 1 100ML.BAG IVPB SCH (10:15)
[2024-12-24] MEDS: APIXABAN 5 MG TAB PO SCH (11:10)
[2024-12-24] MEDS: MAGNESIUM SULFATE-WATER PMX 4 GM in WATER FOR INJECTION 1 100ML.BAG IVPB ONE (11:10)
--- NOTE | 2024-12-24 11:32 | P.CRDCN ---
History of Present Illness Consult date: 12/24/24 Consult reason: atrial fibrillation History of present illness: The patient is an 79-year-old female who presented to the hospital with increased shortness of breath. Patient has a history of asthma and has subsequently been diagnosed with pneumonia. Overnight the patient developed A- fib with RVR and was transferred to [facility]. She was started on a Cardizem drip and cardiology has been consulted for further management. Patient does follow with Dr. Nuñez in the office and carries a history of hypertrophic cardiomyopathy. Patient remains in atrial fibrillation with episodes of RVR up to the 140s. DIAGNOSTICS: Initial EKG showed sinus rhythm with frequent PACs Follow-up EKG and telemetry shows atrial fibrillation with RVR Chest x-ray shows no acute cardiopulmonary process Lab data: WBC 9.1, hemoglobin 11.9, hematocrit 36.9, platelet 196, sodium 137, potassium 3.8, BUN 10, creatinine 0.67, AST 26, ALT 15, troponin 0.02, patient is negative for influenza RSV and COVID REVIEW OF SYSTEMS: No fever or chills. No cough or expectoration. No diaphoresis. Patient denies headache, dizziness, blurred vision, double vision. Patient denies any stomach discomfort. No nausea, vomiting. No hematochezia. No hematemesis. Denies any black stools or blood in his stools. Denies dysuria or hematuria. No muscle weakness or numbness. Positive for back discomfort. No chest pain or pressure. No difficulty breathing. PHYSICAL EXAMINATION: This is a 79-year-old female in no apparent distress at the time of my examination. HEENT: Head is atraumatic, normocephalic. Pupils are equal, round. There is no jugular venous distention. No carotid bruit is heard. CHEST EXAMINATION: Lungs are clear to auscultation. No chest wall tenderness is noted on palpation or with deep breathing. HEART EXAMINATION: Irregular rate and rhythm. S1, S2 heard. No murmurs, gallops or rub. ABDOMEN: Soft, nontender. Bowel sounds are heard. No organomegaly noted. EXTREMITIES: 2+ peripheral pulses with no evidence of peripheral edema and no calf tenderness noted. NEUROLOGIC EXAMINATION: Patient is awake, alert and oriented x3. FINAL ASSESSMENT AND PLAN: New onset of A-fib with rapid ventricular response Pneumonia History of hypertrophic cardiomyopathy History of asthma PLAN: Check TSH 4 g of magnesium to be infused over 1 hour Continue Cardizem drip Transition to oral anticoagulation Further recommendations to be based upon clinical course I am dictating on behalf of Dr Daniel Nuñez's history/physical and assessment/plan. Past Medical History Past Medical History: Asthma Additional Past Medical History / Comment(s): RECURRENT LT INGUINAL HERNIA, x3, apical HCM History of Any Multi-Drug Resistant Organisms: None Reported Past Surgical History: Appendectomy, Breast Surgery, Hernia Repair, Tonsillectomy, Tubal Ligation Additional Past Surgical History / Comment(s): BREAST BIOPSY RIGHT. LT INGUINAL HERNIA 05/2019 WITH LYSIS OF ADHESIONS. COLONOSCOPY Past Anesthesia/Blood Transfusion Reactions: Postoperative Nausea & Vomiting (PONV) Past Psychological History: No Psychological Hx Reported Smoking Status: Never smoker Past Alcohol Use History: None Reported Past Drug Use History: None Reported - Past Family History Mother Family Medical History: Cancer Additional Family Medical History / Comment(s): CERVICAL CANCER Father Family Medical History: Cancer Medications and Allergies Home Medications Medication Instructions Recorded Confirmed Type Pravastatin Sodium [Pravachol] 20 mg PO HS 03/08/19 12/22/24 History Ascorbic Acid [Vitamin C] 1,000 mg PO DAILY 04/12/20 12/22/24 History Ubidecarenone [Co Q-10] 100 mg PO DAILY 04/12/20 12/22/24 History Albuterol Sulfate [Albuterol 2 puff INHALATION RT-Q4H PRN 12/22/24 12/22/24 History Sulfate Hfa] Fluticasone Nasal [place] [Flonase 1 spray EA NOSTRIL DAILY 12/22/24 12/22/24 History Nasal [place]] Fluticasone Propion/Salmeterol 1 puff INHALATION RT-BID 12/22/24 12/22/24 History [Advair 100-50 Diskus] Ibandronate Sodium [Boniva] 150 mg PO QMONTHLY 12/22/24 12/22/24 History Allergies Allergy/AdvReac Type Severity Reaction Status Date / Time povidone-iodine Allergy ITCHINH, Verified 12/22/24 09:18 [From Betadine] RED, RASH soap [From Betadine] Allergy ITCHINH, Verified 12/22/24 09:18 RED, RASH codeine AdvReac Confusion Verified 12/22/24 09:18 hydromorphone [From Dilaudid] AdvReac Confusion Verified 12/22/24 21:11 Physical Exam Vitals: Vital Signs Temp Pulse Pulse Resp BP Pulse Ox 12/24/24 09:19 142 H 94 L 12/24/24 09:12 97.8 F 161 H 18 117/81 93 L 12/24/24 05:30 151 H 16 126/95 97 12/24/24 00:52 98.4 F 82 17 116/63 96 12/23/24 18:53 98.0 F 91 17 119/66 93 L 12/23/24 18:34 68 12/23/24 18:21 70 12/23/24 14:29 76 12/23/24 14:19 72 95 12/23/24 13:12 98.3 F 75 17 132/78 95 Intake and Output 12/23/24 12/24/24 12/24/24 22:59 06:59 14:59 Intake Total 546.0 Balance 546.0 Intake: Intake, IV Titration 6.0 Amount Diltiazem 125 mg In 6.0 Dextrose 5% in Water 100 ml @ 5 MG/HR 5 mls/hr IV .Q24H [facility] Rx#:[id number] Oral 540 Other: # Voids 1 # Bowel Movements 1 Results 12/24/24 03:58 12/24/24 03:58 Coagulation 12/24/24 Range/Units 04:01 PT 10.3 (10.0-12.5) sec APTT 24.8 (22.0-30.0) sec CBC 12/24/24 Range/Units 03:58 WBC 9.11 (4.50-10.00) 10*3/uL RBC 4.03 L (4.10-5.20) 10*6/uL Hgb 11.9 L (12.0-15.0) g/dL Hct 36.9 L (37.2-46.3) % Plt Count 196 (140-440) 10*3/uL Comprehensive Metabolic Panel 12/24/24 Range/Units 03:58 Sodium 137 (137-145) mmol/L Potassium 3.8 (3.5-5.1) mmol/L Chloride 106 (98-107) mmol/L Carbon Dioxide 24 (22-30) mmol/L BUN 10 (7-17) mg/dL Creatinine 0.67 (0.52-1.04) mg/dL Glucose 98 (74-99) mg/dL Calcium 10.3 H (8.4-10.2) mg/dL Current Medications Generic Name Dose Route Start Last Admin Trade Name Freq PRN Reason Stop Dose Admin Acetaminophen 500 mg 12/22/24 05:10 12/24/24 05:21 Acetaminophen Tab 500 Mg Tab PO 500 mg Q6H PRN Administration Pain Albuterol/Ipratropium 3 ml 12/22/24 01:48 12/23/24 14:19 Ipratropium-Albuterol 3 Ml Neb INHALATION 3 ml RT-Q4H PRN Administration shortness of breath Albuterol/Ipratropium 3 ml 12/24/24 08:00 12/24/24 09:19 Ipratropium-Albuterol 3 Ml Neb INHALATION Not Given RT-QID STEPHANIA Famotidine 20 mg 12/22/24 09:00 12/24/24 09:06 Famotidine 20 Mg Tab PO 20 mg DAILY STEPHANIA Administration Heparin Sodium (Porcine) 0 unit 12/24/24 03:55 Heparin Sodium 1,000 Un/Ml (10ml Vl) IV PER PROTOCOL PRN Low PTT Protocol Sodium Chloride 1,000 mls @ 20 mls/hr 12/22/24 02:00 12/24/24 10:09 Saline 0.9% IV 20 mls/hr .Q24H STEPHANIA Administration Ceftriaxone Sodium 2 gm/ 50 mls @ 100 mls/hr 12/23/24 09:00 12/24/24 09:06 Sodium Chloride IVPB 12/26/24 09:29 100 mls/hr Q24HR STEPHANIA Administration Protocol Diltiazem HCl 125 mg/ Dextrose 125 mls @ 5 mls/hr 12/24/24 05:00 12/24/24 05:57 /Water IV 15 mg/hr .Q24H STEPHANIA 15 mls/hr Titration Protocol 5 MG/HR Heparin Sodium/Sodium Chloride 250 mls @ 7.893 mls/hr 12/24/24 04:00 12/24/24 05:06 25,000 unit/ Sodium Chloride IV 12 units/kg/hr .Q24H STEPHANIA 7.893 mls/hr Administration Protocol 12 UNITS/KG/HR Magnesium Sulfate/Dextrose 1 100 mls @ 100 mls/hr 12/24/24 10:15 gm/ IV Solution IVPB 12/24/24 14:14 Q1H STEPHANIA Miscellaneous Information 1 each 12/22/24 01:48 Pneumonia Protocol Utilized 1 Each Misc PO ONCE PRN Per Protocol Pravastatin Sodium 20 mg 12/22/24 09:00 12/24/24 09:06 Pravastatin Sodium 20 Mg Tab PO 20 mg DAILY STEPHANIA Administration Prednisone 40 mg 12/22/24 09:00 12/24/24 09:06 Prednisone 20 Mg Tab PO 40 mg DAILY STEPHANIA Administration Intake and Output 12/23/24 12/24/24 12/24/24 22:59 06:59 14:59 Intake Total 546.0 Balance 546.0 Intake: Intake, IV Titration 6.0 Amount Diltiazem 125 mg In 6.0 Dextrose 5% in Water 100 ml @ 5 MG/HR 5 mls/hr IV .Q24H STEPHANIA Rx#:[id number] Oral 540 Other: # Voids 1 # Bowel Movements 1 12/24/24 03:58 12/24/24 03:58
[2024-12-24] MEDS: KETOROLAC 15 MG/ML 1 ML VIAL IVP PRN (11:42)
[2024-12-24] MEDS: HYDROcodone/APAP 5-325MG 1 EACH TAB PO STA (12:38)
--- NOTE | 2024-12-24 14:33 | P.PN ---
Subjective Progress Note Date: 12/24/24 79 year old F with PMH Asthma, HDL, HOCM presents to the ED for productive cough and shortness of breath. In the ED she underwent extensive evaluation. BP 130/78, HR 93, T 100.4F, RR 18, 93% on RA. CBC, Coag panel, CMP significant for Na 135, glu 130, Ca 10.7. Trop 0.022. Lactc acid 1.2. CXR RML PNA. EKG sinus rhythm with PVCs. COVID, RSV, Flu neg. Legionella Ag neg. Patient was started on bronchodilators and Rocephin/Azithromycin, admitted for further workup and management. 12/23 Patient was seen and examined. Reports no changes in her breathing. Sputum Cx mod PMN, mod G+B, fever G+C. BCx prelim neg so far. 95% on 3L NC. CXR appears worse compared to yesterday. 12/24 Patient was seen and examined. Reports bilateral shoulder pain that started last night, pleuritic, currently 7/10 severity. Also went into A-Fib with RVR, started on Cardizem + Heparin drip. 93% on 2L NC. Cardiology recommends Mag 4g IV x 1. CBC, BMP, Coag panel significant for RBC 4.03, Hg 11.9, Hct 36.9, Ca 10.3. Procal 0.51. TSH 0.534. Legionella neg. Sputum Cx showing respiratory manju. BCx remains negative. CXR appears similar to yesterday. EKG shows AFib with RVR rate of 154. General: non toxic, no distress, appears at stated age Derm: warm, dry Head: atraumatic, normocephalic, symmetric Eyes: EOMI, no lid lag, anicteric sclera Mouth: no lip lesion, mucus membranes moist Cardiovascular: S1S2 irreg, no murmur Lungs: Decreased BS bilateral with scattered wheezing, no rhonchi, no rales , no accessory muscle use Ext: no gross muscle atrophy, no edema, no contractures Neuro: no focal neuro deficits Psych: Alert, oriented, appropriate affect Based on my assessment of this patient, this patient meets a high complexity level of care. Community Acquired PNA: Continue Rocpehin 2g IV QD + Azithromycin 400 mg IV QD. Sputum Cx + BCx as above. Pro-josue 0.51. Consult Pulmonary. Asthma exacerbation: DuoNeb QID schduled and PRN SOB/wheezing. Prednisone 40 mg PO QD. AFib with RVR: 4g mag sulfate x 1 today per Cardiology. TSH wnl. Continue Cardizem drip at 15 mg/hr + Heparin drip for AC. Monitor APTT. Echo is ordered. Cardiology on board. HLD: Pravastatin 20 mg PO QHS. Hypertrophic cardiomyopathy: Cardiology on board. CODE STATUS: FULL CODE DVT Prophylaxis: Heparin drip GI Prophylaxis: Designated medical POA if patient is not able to make medical decisions for themselves: I have reviewed the following sap treasury consultant notes: Cardiology. I have reviewed the results of the following tests: CBC, BMP, Coag panel, P rocal, TSH, Legionella Ag, Sputum Cx, BCx. I have ordered the following tests: Daily coag panel while on heparin drip. I have discussed the care of this patient with the following independent historian: Family at bedside. I have independently interpreted the following test below: CXR, EKG I have discussed the management of this patient with the following physician: Objective - Vital Signs Vital signs: Vital Signs Temp 97.8 F 12/24/24 09:12 Pulse 153 H 12/24/24 11:15 Resp 18 12/24/24 11:15 BP 100/73 12/24/24 11:15 Pulse Ox 93 L 12/24/24 11:15 FiO2 Intake & Output 12/23/24 12/24/24 12/24/24 18:59 06:59 18:59 Intake Total 546.0 118 Output Total 950 Balance -950 546.0 118 Intake: Intake, IV Titration 6.0 Amount Diltiazem 125 mg In 6.0 Dextrose 5% in Water 100 ml @ 5 MG/HR 5 mls/hr IV .Q24H [facility] Rx#:[id number] Oral 540 118 Output: Urine 950 Other: Voiding Method Toilet Toilet # Voids 1 # Bowel Movements 1 - Labs CBC & Chem 7: 12/24/24 03:58 12/24/24 03:58 Labs: Abnormal Lab Results - Last 24 Hours (Table) 12/24/24 12/24/24 12/24/24 Range/Units 03:58 03:58 03:58 RBC 4.03 L (4.10-5.20) 10*6/uL Hgb 11.9 L (12.0-15.0) g/dL Hct 36.9 L (37.2-46.3) % APTT (22.0-30.0) sec Calcium 10.3 H (8.4-10.2) mg/dL Procalcitonin 0.51 H (0.02-0.50) ng/mL 12/24/24 Range/Units 11:42 RBC (4.10-5.20) 10*6/uL Hgb (12.0-15.0) g/dL Hct (37.2-46.3) % APTT 41.8 H (22.0-30.0) sec Calcium (8.4-10.2) mg/dL Procalcitonin (0.02-0.50) ng/mL Microbiology - Last 24 Hours (Table) 12/22/24 02:06 Blood Culture - Preliminary Blood 12/22/24 11:42 Gram Stain - Final Sputum Sputum Culture - Final
[2024-12-24 14:43] LABS: Lymphocytes # (M) 1.73 k/uL (1.0-4.8); Monocytes # (M) 0.82 k/uL (0-1.0); Neutrophils # (M) 6.56 k/uL (1.3-7.7); Neutrophils % (M) 72 %; Total Cells Counted 100
--- NOTE | 2024-12-24 23:16 | P.CNPUL ---
History of Present Illness Consult date: 12/24/24 Reason for consult: dyspnea History of present illness: 79-year-old female patient, known history of chronic bronchial asthma, coming in with symptoms of increased dyspnea, cough, congestion and wheezing. No documented fever. Based on her worsening shortness of breath, the patient presented to the hospital and the patient was found to have also atrial fibrillation with rapid ventricular response. Accordingly, the patient was hospitalized, started on broad-spectrum antibiotics and she is currently on DuoNeb nebulized treatments [id number], IV Rocephin and Zithromax and prednisone 40 mg p.o. daily. The patient was also started on Cardizem drip for rate control. She is on anticoagulation with Eliquis 5 mg p.o. twice a day. Wh ite cell count of 10.1. Hemoglobin 11.9 and platelet count of 196. Normal electrolytes. Procalcitonin level was 0.51. Calcium levels at 10.3. TSH was 0.5. The viral screen was negative. Legionella urine antigen was negative. Chest x-ray showed cardiomegaly, and bibasilar pulmonary infiltrates especially on the right consistent with pneumonia. Repeat chest x-ray was done today and there is no significant change compared to yesterday's evaluation. No altered mentation. No pleurisy. No hemoptysis. No swelling in lower extremities. She is currently on oxygen at 2 L with a pulse ox of 93%. She is a non-smoker. Review of Systems Constitutional: Reports fatigue, Reports fever Eyes: denies as per HPI, denies blurred vision, denies bulging eye, denies decreased vision, denies diplopia, denies discharge, denies dry eye, denies irritation, denies itching, denies pain, denies photophobia, denies loss of peripheral vision, denies loss of vision, denies tunnel vision/blind spots Ears: deny: decreased hearing, ear discharge, earache, tinnitus Ears, nose, mouth and throat: Reports as per HPI Breasts: absent: as per HPI, change in shape, gynecomastia, masses, nipple discharge, pain, skin changes, swelling Cardiovascular: Reports dyspnea on exertion, Reports irregular heart beat, Reports shortness of breath Respiratory: Reports cough, Reports dyspnea Gastrointestinal: Reports as per HPI Genitourinary: Reports as per HPI Menstruation: Reports as per HPI Musculoskeletal: Reports as per HPI Musculoskeletal: absent: ankle pain, ankle stiffness, ankle swelling, as per HPI, elbow pain, elbow stiffness, elbow swelling, foot pain, foot stiffness, foot swelling, hand pain, hand stiffness, hand swelling, hip pain, hip stiffness, hip swelling, knee pain, knee stiffness, knee swelling, shoulder pain, shoulder stiffness, shoulder swelling, wrist pain, wrist stiffness, wrist swelling Integumentary: Reports as per HPI Neurological: Reports as per HPI Psychiatric: Reports as per HPI Endocrine: Reports as per HPI Hematologic/Lymphatic: Reports as per HPI Allergic/Immunologic: Reports as per HPI Past Medical History Past Medical History: Asthma Additional Past Medical History / Comment(s): RECURRENT LT INGUINAL HERNIA, x3, apical HCM History of Any Multi-Drug Resistant Organisms: None Reported Past Surgical History: Appendectomy, Breast Surgery, Hernia Repair, Tonsillectomy, Tubal Ligation Additional Past Surgical History / Comment(s): BREAST BIOPSY RIGHT. LT INGUINAL HERNIA 05/2019 WITH LYSIS OF ADHESIONS. COLONOSCOPY Past Anesthesia/Blood Transfusion Reactions: Postoperative Nausea & Vomiting (PONV) Past Psychological History: No Psychological Hx Reported Smoking Status: Never smoker Past Alcohol Use History: None Reported Past Drug Use History: None Reported - Past Family History Mother Family Medical History: Cancer Additional Family Medical History / Comment(s): CERVICAL CANCER Father Family Medical History: Cancer Medications and Allergies Home Medications Medication Instructions Recorded Confirmed Type Pravastatin Sodium [Pravachol] 20 mg PO HS 03/08/19 12/22/24 History Ascorbic Acid [Vitamin C] 1,000 mg PO DAILY 04/12/20 12/22/24 History Ubidecarenone [Co Q-10] 100 mg PO DAILY 04/12/20 12/22/24 History Albuterol Sulfate [Albuterol 2 puff INHALATION RT-Q4H PRN 12/22/24 12/22/24 History Sulfate Hfa] Fluticasone Nasal [place] [Flonase 1 spray EA NOSTRIL DAILY 12/22/24 12/22/24 History Nasal [place]] Fluticasone Propion/Salmeterol 1 puff INHALATION RT-BID 12/22/24 12/22/24 History [Advair 100-50 Diskus] Ibandronate Sodium [Boniva] 150 mg PO QMONTHLY 12/22/24 12/22/24 History Allergies Allergy/AdvReac Type Severity Reaction Status Date / Time povidone-iodine Allergy ITCHINH, Verified 12/22/24 09:18 [From Betadine] RED, RASH soap [From Betadine] Allergy ITCHINH, Verified 12/22/24 09:18 RED, RASH codeine AdvReac Confusion Verified 12/22/24 09:18 hydromorphone [From Dilaudid] AdvReac Confusion Verified 12/22/24 21:11 Physical Exam Vitals: Vital Signs Temp Pulse Pulse Resp BP Pulse Ox 12/24/24 11:15 153 H 18 100/73 93 L 12/24/24 09:19 142 H 94 L 12/24/24 09:15 161 H 18 12/24/24 09:12 97.8 F 161 H 18 117/81 93 L 12/24/24 05:30 151 H 16 126/95 97 12/24/24 00:52 98.4 F 82 17 116/63 96 12/23/24 18:53 98.0 F 91 17 119/66 93 L 12/23/24 18:34 68 12/23/24 18:21 70 12/23/24 14:29 76 12/23/24 14:19 72 95 12/23/24 13:12 98.3 F 75 17 132/78 95 Intake and Output 12/23/24 12/24/24 12/24/24 22:59 06:59 14:59 Intake Total 546.0 118 Balance 546.0 118 Intake: Intake, IV Titration 6.0 Amount Diltiazem 125 mg In 6.0 Dextrose 5% in Water 100 ml @ 5 MG/HR 5 mls/hr IV .Q24H [facility] Rx#:[id number] Oral 540 118 Other: Voiding Method Toilet # Voids 1 # Bowel Movements 1 The patient appeared well nourished and normally developed. Vital signs as documented. No significant shortness of breath at rest and the patient spent 2 L of oxygen by nasal cannula. Head exam is unremarkable. No scleral icterus or corneal arcus noted. Neck is without jugular venous distension, thyromegaly, or carotid bruits. Carotid upstrokes are brisk bilaterally. Lungs Scattered expiratory wheeze heard bilaterally. Crackles at lung bases bilaterally. Cardiac exam reveals the PMI to be normally sized and situated. Rhythm is r irregular consistent with atrial fibrillation the patient is also in rapid ventricular response. First and second heart sounds normal. No murmurs, rubs or gallops. Abdominal exam reveals normal bowel sounds, no masses, no organomegaly and no aortic enlargement. Extremities are nonedematous and both femoral and pedal pulses are normal. Examination of the skin revealed no evidence of significant rashes, suspicious appearing nevi or other concerning lesions. Neurologically, the patient is awake and alert and the patient does not have any focal neurological deficit. Cranial nerves are essentially intact. Results - Laboratory Findings CBC and BMP: 12/24/24 03:58 12/24/24 03:58 ABG WBC 9.11 10*3/uL (4.50-10.00) 12/24/24 03:58 RBC 4.03 10*6/uL (4.10-5.20) L 12/24/24 03:58 Hgb 11.9 g/dL (12.0-15.0) L 12/24/24 03:58 Hct 36.9 % (37.2-46.3) L 12/24/24 03:58 MCV 91.6 fL (80.0-97.0) 12/24/24 03:58 MCH 29.5 pg (27.0-32.0) 12/24/24 03:58 MCHC 32.2 g/dL (32.0-37.0) 12/24/24 03:58 RDW 12.7 % (11.5-14.5) 12/24/24 03:58 Plt Count 196 10*3/uL (140-440) 12/24/24 03:58 MPV 10.3 fL (9.5-12.2) 12/24/24 03:58 Immature Gran % (Auto) 0.4 % 12/21/24 20:47 Neutrophils % 88.6 % 12/21/24 20:47 Lymphocytes % 5.0 % 12/21/24 20:47 Monocytes % 5.5 % 12/21/24 20:47 Eosinophils % 0.2 % 12/21/24 20:47 Basophils % 0.3 % 12/21/24 20:47 Immature Gran # 0.04 10*3/uL (0.00-0.04) 12/21/24 20:47 Neutrophils # 8.69 10*3/uL (1.80-7.70) H 12/21/24 20:47 Lymphocytes # 0.49 10*3/uL (0.90-5.00) L 12/21/24 20:47 Monocytes # 0.54 10*3/uL (0.20-1.00) 12/21/24 20:47 Eosinophils # 0.02 10*3/uL (0.04-0.35) L 12/21/24 20:47 Basophils # 0.03 10*3/uL (0.00-0.10) 12/21/24 20:47 PT 10.3 sec (10.0-12.5) 12/24/24 04:01 INR 0.9 (<1.2) 12/24/24 04:01 APTT 24.8 sec (22.0-30.0) 12/24/24 04:01 Sodium 137 mmol/L (137-145) 12/24/24 03:58 Potassium 3.8 mmol/L (3.5-5.1) 12/24/24 03:58 Chloride 106 mmol/L (98-107) 12/24/24 03:58 Carbon Dioxide 24 mmol/L (22-30) 12/24/24 03:58 Anion Gap 7 mmol/L 12/24/24 03:58 BUN 10 mg/dL (7-17) 12/24/24 03:58 Creatinine 0.67 mg/dL (0.52-1.04) 12/24/24 03:58 Est GFR (CKD-EPI)AfAm >90 (>60 ml/min/1.73 sqM) 12/24/24 03:58 Est GFR (CKD-EPI)NonAf 83 (>60 ml/min/1.73 sqM) 12/24/24 03:58 Glucose 98 mg/dL (74-99) 12/24/24 03:58 Plasma Lactic Acid Atif 1.2 mmol/L (0.7-2.0) 12/21/24 23:28 Calcium 10.3 mg/dL (8.4-10.2) H 12/24/24 03:58 Total Bilirubin 0.7 mg/dL (0.2-1.3) 12/21/24 20:47 AST 26 U/L (14-36) 12/21/24 20:47 ALT 15 U/L (4-34) 12/21/24 20:47 Alkaline Phosphatase 80 U/L (38-126) 12/21/24 20:47 Troponin I 0.022 ng/mL (0.000-0.034) 12/21/24 20:47 Total Protein 6.5 g/dL (6.3-8.2) 12/21/24 20:47 Albumin 4.3 g/dL (3.5-5.0) 12/21/24 20:47 Procalcitonin 0.51 ng/mL (0.02-0.50) H 12/24/24 03:58 Influenza Type A (PCR) Not Detected (Not Detectd) 12/21/24 21:02 Influenza Type B (PCR) Not Detected (Not Detectd) 12/21/24 21:02 Urine Legionella Ag Negative (Negative) 12/22/24 04:51 RSV (PCR) Not Detected (Not Detectd) 12/21/24 21:02 SARS-CoV-2 (PCR) Not Detected (Not Detectd) 12/21/24 21:02 PT/INR, D-dimer PT 10.3 sec (10.0-12.5) 12/24/24 04:01 INR 0.9 (<1.2) 12/24/24 04:01 Abnormal lab findings: Abnormal Labs 12/21/24 12/21/24 12/24/24 20:47 20:47 03:58 RBC Hgb Hct Neutrophils # 8.69 H Lymphocytes # 0.49 L Eosinophils # 0.02 L Sodium 135 L Glucose 130 H Calcium 10.7 H Procalcitonin 0.51 H 12/24/24 12/24/24 03:58 03:58 RBC 4.03 L Hgb 11.9 L Hct 36.9 L Neutrophils # Lymphocytes # Eosinophils # Sodium Glucose Calcium 10.3 H Procalcitonin - Diagnostic Findings Chest x-ray: image reviewed Assessment and Plan Plan: Acute bilateral lower lobe pneumonia, likely bacterial. The viral screen is negative. Legionella urine antigen is also negative. Acute hypoxic respiratory failure, currently on 2 L of oxygen by nasal cannula Asthma exacerbation secondary to above Atrial fibrillation with rapid ventricular response, this is of a new onset. Shortness of breath secondary to above History of hypertrophic cardiomyopathy Plan Oxygen titration to maintain saturation above 90%, currently on 2 L Blood cultures Sputum Gram stain and culture Continue Rocephin and Zithromax Prednisone 40 mg p.o. daily as part of burst taper Management of atrial fibrillation per cardiology. Continue Cardizem drip Anticoagulation with Eliquis 5 mg p.o. twice a day TSH is normal Obtain echocardiogram Will continue to follow.
[2024-12-25 07:48] LABS: Basophils # (A) 0.01 10*3/uL (0.00-0.10); Basophils % (A) 0.1 %; Eosinophils # (A) 0.03 10*3/uL (0.04-0.35); Eosinophils % (A) 0.4 %; HCT 33.6 % (37.2-46.3); HGB 11.2 g/dL (12.0-15.0); Lymphocytes # (A) 1.66 10*3/uL (0.90-5.00); Lymphocytes % (A) 23.1 %; MCH 30.4 pg (27.0-32.0); MCHC 33.3 g/dL (32.0-37.0); MCV 91.1 fL (80.0-97.0); Monocytes # (A) 0.65 10*3/uL (0.20-1.00); Monocytes % (A) 9.1 %; Neutrophils # (A) 4.81 10*3/uL (1.80-7.70); Neutrophils % (A) 67.0 %; Platelet Count 215 10*3/uL (140-440); RBC 3.69 10*6/uL (4.10-5.20); RDW 12.7 % (11.5-14.5); WBC 7.18 10*3/uL (4.50-10.00)
[2024-12-25 07:57] LABS: INR 0.9 (<1.2); Prothrombin Time 10.4 sec (10.0-12.5)
[2024-12-25] MEDS: AZITHROMYCIN 500 MG TAB PO SCH (08:56)
--- NOTE | 2024-12-25 09:45 | P.PN ---
Subjective Progress Note Date: 12/25/24 This is Parminder Vasquez NP, I'm dictating on behalf of Dr. Nuñez's H&P and A&P. Patient was interviewed and examined. Patient is a pleasant 79-year-old female who presented to the hospital with pneumonia, and was subsequent found to be in A-fib with RVR, new onset. Patient continues on a diltiazem drip with an elevated heart rate, it has brought it down some, but she remains in the 100-120 range. Patient still experiencing a productive cough, rhonchi bilaterally, and is requiring supplemental oxygen. She is denying any chest pain, heart palpitations. GENERAL: Well-appearing, well-nourished and in no acute distress. NECK: Supple without JVD or thyromegaly. LUNGS: Breath sounds clear to auscultation bilaterally. Respiration equal and unlabored. No wheezes, rales or rhonchi. HEART: Regular rate and rhythm without murmurs, rubs or gallops. S1 and S2 heard. EXTREMITIES: Normal range of motion, no edema. No clubbing or cyanosis. Peripheral pulses intact and strong. VITALS: Temp 97.9, pulse 122, respirations 16, blood pressure 97/66, O2 saturation 95% on 2 L TELEMETRY: Atrial fibrillation with rapid ventricular response LABS: White count 7.1, hemoglobin 11.2, platelets 215 IMPRESSION: 1. New onset of A-fib with rapid ventricular response 2. Pneumonia 3. History of hypertrophic cardiomyopathy 4. History of asthma PLAN: Continue IV diltiazem. Patient is continuing to deal with pneumonia, which is likely continuing to provoke the atrial fibrillation. Continue to monitor patient on telemetry, as pneumonia improves monitor to see if she converts back to normal sinus rhythm. Avoid amiodarone. Objective - Vital Signs Vital signs: Vital Signs Temp 97.9 F 12/25/24 09:07 Pulse 122 H 12/25/24 09:07 Resp 16 12/25/24 09:07 BP 97/66 12/25/24 09:07 Pulse Ox 95 12/25/24 09:07 FiO2 Intake & Output 12/24/24 12/25/24 12/25/24 18:59 06:59 18:59 Intake Total 334.873 743 240 Output Total 2 Balance 332.873 743 240 Weight 68.2 kg Intake: Intake, IV Titration 216.873 203 Amount Diltiazem 125 mg In 119 203 Dextrose 5% in Water 100 ml @ 5 MG/HR 5 mls/hr IV .Q24H [facility] Rx#:[id number] Heparin Sod,Pork in 0.45% 97.873 NaCl 25,000 unit In 0.45 % NaCl 1 250ml.bag @ 12 UNITS/KG/HR 7.893 mls/hr IV .Q24H [facility] Rx#: [id number] Oral 118 540 240 Output: Stool 2 Other: Voiding Method Toilet Toilet # Voids 2 1 # Bowel Movements 1 - Labs CBC & Chem 7: 12/25/24 07:28 12/24/24 03:58 Labs: Abnormal Lab Results - Last 24 Hours (Table) 12/24/24 12/24/24 12/25/24 Range/Units 03:58 11:42 07:28 RBC 3.69 L (4.10-5.20) 10*6/uL Hgb 11.2 L (12.0-15.0) g/dL Hct 33.6 L (37.2-46.3) % Eosinophils # 0.03 L (0.04-0.35) 10*3/uL APTT 41.8 H (22.0-30.0) sec Procalcitonin 0.51 H (0.02-0.50) ng/mL Microbiology - Last 24 Hours (Table) 12/22/24 02:06 Blood Culture - Preliminary Blood 12/22/24 11:42 Gram Stain - Final Sputum Sputum Culture - Final
--- NOTE | 2024-12-25 11:38 | P.PN ---
Subjective Progress Note Date: 12/25/24 79 year old F with PMH Asthma, HDL, HOCM presents to the ED for productive cough and shortness of breath. In the ED she underwent extensive evaluation. BP 130/78, HR 93, T 100.4F, RR 18, 93% on RA. CBC, Coag panel, CMP significant for Na 135, glu 130, Ca 10.7. Trop 0.022. Lactc acid 1.2. CXR RML PNA. EKG sinus rhythm with PVCs. COVID, RSV, Flu neg. Legionella Ag neg. Patient was started on bronchodilators and Rocephin/Azithromycin, admitted for further workup and management. Pulmonary consulted. Went into A-Fib with RVR on 12/24. Started on Cardizem drip and Heparin drip. Cardiology consulted. 12/25 Patient was seen and examined. 95% on 2L NC. HR improved currently in the low 100s. Cardiology recommends continued Cardizem drip currently at 15 mg/hr. CBC, Coag panel significant for RBC 3.69, Hg 11.2, Hct 33.6. Sputum Cx showed respiratory manju, repeat sputum Cx has been sent out today. BCx remains negative. General: non toxic, no distress, appears at stated age Derm: warm, dry Head: atraumatic, normocephalic, symmetric Eyes: EOMI, no lid lag, anicteric sclera Mouth: no lip lesion, mucus membranes moist Cardiovascular: S1S2 irreg, no murmur Lungs: Decreased BS bilateral with scattered wheezing, no rhonchi, no rales , no accessory muscle use Ext: no gross muscle atrophy, no edema, no contractures Neuro: no focal neuro deficits Psych: Alert, oriented, appropriate affect Based on my assessment of this patient, this patient meets a high complexity level of care. Community Acquired PNA: Continue Rocpehin 2g IV QD + Azithromycin 500 mg IV QD. Sputum Cx + BCx as above. Repeat sputum Cx ordered 12/25. Pro-josue 0.51. Pulmonary on board. Asthma exacerbation: DuoNeb QID schduled and PRN SOB/wheezing. Prednisone 40 mg PO QD. AFib with RVR: TSH wnl. Continue Cardizem drip at 15 mg/hr. Heparin drip switched to Eliquis. Echo is ordered. Cardiology on board. HLD: Pravastatin 20 mg PO QHS. Hypertrophic cardiomyopathy: Cardiology on board. CODE STATUS: FULL CODE DVT Prophylaxis: Eliquis. GI Prophylaxis: Designated medical POA if patient is not able to make medical decisions for th emselves: I have reviewed the following network consultant notes: Cardiology, Pulmonary. I have reviewed the results of the following tests: CBC, Coag panel. I have ordered the following tests: CBC, BMP, Mag in the AM. Echo is pending. I have discussed the care of this patient with the following independent historian: Family at bedside. RN. I have independently interpreted the following test below: I have discussed the management of this patient with the following physician: Objective - Vital Signs Vital signs: Vital Signs Temp 97.9 F 12/25/24 09:07 Pulse 108 H 12/25/24 11:13 Resp 16 12/25/24 09:10 BP 97/66 12/25/24 09:07 Pulse Ox 94 L 12/25/24 11:03 FiO2 21 12/25/24 11:03 Intake & Output 12/24/24 12/25/24 12/25/24 18:59 06:59 18:59 Intake Total 334.873 743 240 Output Total 2 Balance 332.873 743 240 Weight 68.2 kg Intake: Intake, IV Titration 216.873 203 Amount Diltiazem 125 mg In 119 203 Dextrose 5% in Water 100 ml @ 5 MG/HR 5 mls/hr IV .Q24H [facility] Rx#:[id number] Heparin Sod,Pork in 0.45% 97.873 NaCl 25,000 unit In 0.45 % NaCl 1 250ml.bag @ 12 UNITS/KG/HR 7.893 mls/hr IV .Q24H [facility] Rx#: [id number] Oral 118 540 240 Output: Stool 2 Other: Voiding Method Toilet Toilet Toilet # Voids 2 1 1 # Bowel Movements 1 1 - Labs CBC & Chem 7: 12/25/24 07:28 12/24/24 03:58 Labs: Abnormal Lab Results - Last 24 Hours (Table) 12/24/24 12/25/24 Range/Units 11:42 07:28 RBC 3.69 L (4.10-5.20) 10*6/uL Hgb 11.2 L (12.0-15.0) g/dL Hct 33.6 L (37.2-46.3) % Eosinophils # 0.03 L (0.04-0.35) 10*3/uL APTT 41.8 H (22.0-30.0) sec Microbiology - Last 24 Hours (Table) 12/22/24 02:06 Blood Culture - Preliminary Blood 12/22/24 11:42 Gram Stain - Final Sputum Sputum Culture - Final
--- NOTE | 2024-12-25 19:17 | P.PN ---
Subjective Progress Note Date: 12/25/24 79-year-old female patient, known history of chronic bronchial asthma, coming in with symptoms of increased dyspnea, cough, congestion and wheezing. No documented fever. Based on her worsening shortness of breath, the patient presented to the hospital and the patient was found to have also atrial fibr illation with rapid ventricular response. Accordingly, the patient was hospitalized, started on broad-spectrum antibiotics and she is currently on DuoNeb nebulized treatments [id number], IV Rocephin and Zithromax and prednisone 40 mg p.o. daily. The patient was also started on Cardizem drip for rate control. She is on anticoagulation with Eliquis 5 mg p.o. twice a day. White cell count of 10.1. Hemoglobin 11.9 and platelet count of 196. Normal electrolytes. Procalcitonin level was 0.51. Calcium levels at 10.3. TSH was 0.5. The viral screen was negative. Legionella urine antigen was negative. Chest x-ray showed cardiomegaly, and bibasilar pulmonary infiltrates especially on the right consistent with pneumonia. Repeat chest x-ray was done today and there is no significant change compared to yesterday's evaluation. No altered mentation. No pleurisy. No hemoptysis. No swelling in lower extremities. She is currently on oxygen at 2 L with a pulse ox of 93%. She is a non-smoker. On 12/25/2024, the patient is being seen for a follow-up. The patient is still being treated for bilateral lower lobe pneumonia. The patient continues to be in atrial fibrillation. Oxygenation is improved and the patient Room Air Oxygen. Remains on Rocephin and Zithromax. Sputum Culture and Blood Cultures Still Pending for Now. White Cell Count Is 7.0 with a Hemoglobin of 11.2 and a Platelet Count of 215. Meanwhile, the Patient Remains on the Cardizem Drip for Rate Control. She Continues to Be Somewhat Tachycardic and Her Heart Rate Continues to Fluctuate Significantly. Cardiology on the Case. No Other New Complaints Otherwise for Now. No Altered Mentation. No Pleurisy or Hemoptysis. Objective - Vital Signs Vital signs: Vital Signs Temp 97.9 F 12/25/24 09:07 Pulse 91 12/25/24 11:56 Resp 16 12/25/24 11:56 BP 108/64 12/25/24 11:56 Pulse Ox 91 L 12/25/24 11:56 FiO2 21 12/25/24 11:03 Intake & Output 12/24/24 12/25/24 12/25/24 18:59 06:59 18:59 Intake Total 334.873 743 240 Output Total 2 Balance 332.873 743 240 Weight 68.2 kg Intake: Intake, IV Titration 216.873 203 Amount Diltiazem 125 mg In 119 203 Dextrose 5% in Water 100 ml @ 5 MG/HR 5 mls/hr IV .Q24H [facility] Rx#:[id number] Heparin Sod,Pork in 0.45% 97.873 NaCl 25,000 unit In 0.45 % NaCl 1 250ml.bag @ 12 UNITS/KG/HR 7.893 mls/hr IV .Q24H [facility] Rx#: [id number] Oral 118 540 240 Output: Stool 2 Other: Voiding Method Toilet Toilet Toilet # Voids 2 1 1 # Bowel Movements 1 1 - Exam The patient appeared well nourished and normally developed. Vital signs as documented. No significant shortness of breath at rest and the patient on room air oxygen Head exam is unremarkable. No scleral icterus or corneal arcus noted. Neck is without jugular venous distension, thyromegaly, or carotid bruits. Carotid upstrokes are brisk bilaterally. Lungs Scattered expiratory wheeze heard bilaterally. Crackles at lung bases bilaterally. Cardiac exam reveals the PMI to be normally sized and situated. Rhythm is r irregular consistent with atrial fibrillation the patient is also in rapid ventricular response. First and second heart sounds normal. No murmurs, rubs or gallops. Abdominal exam reveals normal bowel sounds, no masses, no organomegaly and no aortic enlargement. Extremities are nonedematous and both femoral and pedal pulses are normal. Examination of the skin revealed no evidence of significant rashes, suspicious appearing nevi or other concerning lesions. Neurologically, the patient is awake and alert and the patient does not have any focal neurological deficit. Cranial nerves are essentially intact. - Labs CBC & Chem 7: 12/25/24 07:28 12/24/24 03:58 Labs: Abnormal Lab Results - Last 24 Hours (Table) 12/24/24 12/25/24 Range/Units 11:42 07:28 RBC 3.69 L (4.10-5.20) 10*6/uL Hgb 11.2 L (12.0-15.0) g/dL Hct 33.6 L (37.2-46.3) % Eosinophils # 0.03 L (0.04-0.35) 10*3/uL APTT 41.8 H (22.0-30.0) sec Microbiology - Last 24 Hours (Table) 12/22/24 02:06 Blood Culture - Preliminary Blood 12/22/24 11:42 Gram Stain - Final Sputum Sputum Culture - Final Assessment and Plan Plan: Acute bilateral lower lobe pneumonia, likely bacterial. The viral screen is negative. Legionella urine antigen is also negative. Acute hypoxic respiratory failure, currently on room air oxygen Asthma exacerbation secondary to above Atrial fibrillation with rapid ventricular response, this is of a new onset. The patient remains on a Cardizem drip Shortness of breath secondary to above History of hypertrophic cardiomyopathy Plan Oxygen titration and the patient is currently on room air oxygen Blood cultures pending Sputum Gram stain and culture pending Continue Rocephin and Zithromax Prednisone 40 mg p.o. daily as part of burst taper Repeat chest x-ray in the morning Management of atrial fibrillation per cardiology. Continue Cardizem drip Anticoagulation with Eliquis 5 mg p.o. twice a day TSH is normal Obtain echocardiogram Will continue to follow.
[2024-12-26 06:36] LABS: HCT 35.7 % (37.2-46.3); HGB 11.6 g/dL (12.0-15.0); MCH 29.7 pg (27.0-32.0); MCHC 32.5 g/dL (32.0-37.0); MCV 91.5 fL (80.0-97.0); Platelet Count 252 10*3/uL (140-440); RBC 3.90 10*6/uL (4.10-5.20); RDW 12.7 % (11.5-14.5); WBC 6.77 10*3/uL (4.50-10.00)
[2024-12-26 06:49] LABS: African American GFR (CKD) 84 (>60 ml/min/1.73 sqM); Anion Gap 6 mmol/L; Blood Urea Nitrogen 15 mg/dL (7-17); Calcium 10.1 mg/dL (8.4-10.2); Carbon Dioxide 24 mmol/L (22-30); Chloride 106 mmol/L (98-107); Glucose 125 mg/dL (74-99); Magnesium 2.3 mg/dL (1.6-2.3); Non-African American GFR(CKD) 73 (>60 ml/min/1.73 sqM); Potassium 4.3 mmol/L (3.5-5.1); Sodium 136 mmol/L (137-145)
--- NOTE | 2024-12-26 07:11 | XR ---
EXAMINATION TYPE: XR chest 1V DATE OF EXAM: 12/26/2024 6:46 AM COMPARISON: Chest radiographs from 12/24/2024. CLINICAL INDICATION: Female, 79 years old with history of pneunonia FU; TECHNIQUE: XR chest 1V Frontal view of the chest. FINDINGS: Lungs/Pleura: Improved aeration of lungs on today's exam with persistent airspace opacities scattered throughout the lungs. No evidence of pneumothorax or large pleural effusion. Pulmonary vascularity: Pulmonary vascular congestion. Heart/mediastinum: Cardiomediastinal silhouette is enlarged. Musculoskeletal: No acute osseous pathology. IMPRESSION: 1. Improved aeration of the lungs 2. Cardiomegaly. [facility], , 12/26/2024 7:08 AM
--- NOTE | 2024-12-26 08:47 | P.PN ---
Subjective Progress Note Date: 12/26/24 The patient was seen and evaluated this morning which she continues to be in atrial flutter/fib with a fast heart rate. Currently she is on Cardizem IV. No AV blaze lisa agents orally. She is on oral anticoagulation. The echo continues to be pending. The physical examination is remarkable for tachycardia with diminished breathing sounds bilaterally and no edema was noted in the lower extremities Assessment Atrial flutter/fib versus atrial tachycardia Pneumonia Multiple comorbid conditions Plan Start the patient on Toprol-XL in addition to Cardizem Continue oral anticoagulation Consider cardioversion if she remains tachycardic Objective - Vital Signs Vital signs: Vital Signs Temp 98.2 F 12/26/24 04:00 Pulse 106 H 12/26/24 04:00 Resp 18 12/26/24 04:00 BP 115/83 12/26/24 04:00 Pulse Ox 95 12/26/24 04:00 FiO2 21 12/25/24 11:03 Intake & Output 12/25/24 12/26/24 12/26/24 18:59 06:59 18:59 Intake Total 827 262.25 Balance 827 262.25 Weight 67.9 kg Intake: IV 20 Invasive Line 2 20 Intake, IV Titration 125 242.25 Amount Diltiazem 125 mg In 125 242.25 Dextrose 5% in Water 100 ml @ 5 MG/HR 5 mls/hr IV .Q24H [facility] Rx#:[id number] Oral 702 Other: Voiding Method Toilet Toilet # Voids 1 1 # Bowel Movements 1 - Labs CBC & Chem 7: 12/26/24 05:59 12/26/24 05:59 Labs: Abnormal Lab Results - Last 24 Hours (Table) 12/26/24 12/26/24 Range/Units 05:59 05:59 RBC 3.90 L (4.10-5.20) 10*6/uL Hgb 11.6 L (12.0-15.0) g/dL Hct 35.7 L (37.2-46.3) % Sodium 136 L (137-145) mmol/L Glucose 125 H (74-99) mg/dL Microbiology - Last 24 Hours (Table) 12/25/24 09:10 Gram Stain - Preliminary Sputum 12/22/24 02:06 Blood Culture - Preliminary Blood
[2024-12-26] MEDS: METOPROLOL SUCCINATE (ER) 25 MG TAB.ER.24H PO SCH (09:22)
[2024-12-26] MEDS: METOPROLOL SUCCINATE (ER) 25 MG TAB.ER.24H PO STA (12:14)
--- NOTE | 2024-12-26 16:17 | P.PN ---
Subjective Progress Note Date: 12/26/24 Hospital Course: 79 year old F with PMH Asthma, HDL, HOCM presents to the ED for productive cough and shortness of breath. In the ED she underwent extensive evaluation. BP 130/78, HR 93, T 100.4F, RR 18, 93% on RA. CBC, Coag panel, CMP significant for Na 135, glu 130, Ca 10.7. Trop 0.022. Lactc acid 1.2. CXR RML PNA. EKG sinus rhythm with PVCs. COVID, RSV, Flu neg. Legionella Ag neg. Patient was started on bronchodilators and Rocephin/Azithromycin, admitted for further workup and management. Pulmonary consulted. Went into A-Fib with RVR on 12/24. Started on Cardizem drip and Heparin drip. Cardiology consulted. 12/26: Seen examined at bedside, no acute events overnight, heart rate is not controlled, cardiology started Toprol-XL in addition to Cardizem, cardioversion will be considered if she remains tachycardic patient is afebrile, blood pressure soft but stable 105/74, SpO2 94% on 2 L. Lab work showed normal WBC count, stable hemoglobin 11.6, sodium 136, normal potassium, chloride, creatinine, glucose controlled. Chest x-ray this morning showed improved aeration. Patient states that she feels significantly better, denies shortness of breath, chest pain, she just feels fatigued. Pertinent positives and negatives as discussed above, a complete review of systems was performed and all other systems are negative. Vitals Signs Reviewed. General: [nontoxic], to be, [appears at stated age] Derm: [warm], [dry] Head: [atraumatic], [normocephalic], [symmetric] Eyes: [EOMI], [no lid lag], [anicteric sclera] Mouth: [no lip lesion], [mucus membranes moist] Cardiovascular: [S1S2 irregular, tachycardic], [no murmur] Lungs: [CTA bilateral], [no rhonchi, no rales] , [no accessory muscle use] Abdominal: [soft], [ nontender to palpation], [no guarding], [no appreciable organomegaly] Ext: [no gross muscle atrophy], [no edema], [no contractures] Neuro: [ CN II-XI grossly intact], [no focal neuro deficits] Psych: [Alert], [oriented], [appropriate affect] Assessment and Plan: Acute hypoxic respiratory failure secondary to community-acquired pneumonia -Continue azithromycin 500 mg p.o. daily SOT 12/25, completed ceftriaxone - Pulmonology following - Repeat chest x-ray as above - Sputum cultures negative to date - Wean off oxygen as tolerated Asthma exacerbation: DuoNeb QID schduled and PRN SOB/wheezing. Prednisone 40 mg PO QD. AFib with RVR: TSH wnl. Continue Cardizem drip at 15 mg/hr. Heparin drip switched to Eliquis. Echo is ordered. Cardiology on board. Started on Toprol-XL 25 daily HLD: Pravastatin 20 mg PO QHS. Hypertrophic cardiomyopathy: Cardiology on board. DVT ppx: Eliquis Code status: Full code Anticipated discharge place: Home Anticipated discharge time: TBD Objective - Vital Signs Vital signs: Vital Signs Temp 98.1 F 12/26/24 11:45 Pulse 164 H 12/26/24 11:45 Resp 16 12/26/24 11:45 BP 100/72 12/26/24 11:45 Pulse Ox 93 L 12/26/24 11:45 FiO2 21 12/25/24 11:03 Intake & Output 12/25/24 12/26/24 12/26/24 18:59 06:59 18:59 Intake Total 827 262.25 865 Balance 827 262.25 865 Weight 67.9 kg Intake: IV 20 20 Invasive Line 2 20 Invasive Line 4 20 Intake, IV Titration 125 242.25 125 Amount Diltiazem 125 mg In 125 242.25 125 Dextrose 5% in Water 100 ml @ 5 MG/HR 5 mls/hr IV .Q24H [facility] Rx#:[id number] Oral 702 720 Other: Voiding Method Toilet Toilet Toilet # Voids 1 1 # Bowel Movements 1 - Labs CBC & Chem 7: 12/26/24 05:59 12/26/24 05:59 Labs: Abnormal Lab Results - Last 24 Hours (Table) 12/26/24 12/26/24 Range/Units 05:59 05:59 RBC 3.90 L (4.10-5.20) 10*6/uL Hgb 11.6 L (12.0-15.0) g/dL Hct 35.7 L (37.2-46.3) % Sodium 136 L (137-145) mmol/L Glucose 125 H (74-99) mg/dL Microbiology - Last 24 Hours (Table) 12/25/24 09:10 Gram Stain - Preliminary Sputum Sputum Culture - Preliminary 12/22/24 02:06 Blood Culture - Preliminary Blood
--- NOTE | 2024-12-26 17:27 | P.PN ---
Subjective Progress Note Date: 12/26/24 79-year-old female patient, known history of chronic bronchial asthma, coming in with symptoms of increased dyspnea, cough, congestion and wheezing. No documented fever. Based on her worsening shortness of breath, the patient presented to the hospital and the patient was found to have also atrial fibri llation with rapid ventricular response. Accordingly, the patient was hospitalized, started on broad-spectrum antibiotics and she is currently on DuoNeb nebulized treatments [id number], IV Rocephin and Zithromax and prednisone 40 mg p.o. daily. The patient was also started on Cardizem drip for rate control. She is on anticoagulation with Eliquis 5 mg p.o. twice a day. White cell count of 10.1. Hemoglobin 11.9 and platelet count of 196. Normal electrolytes. Procalcitonin level was 0.51. Calcium levels at 10.3. TSH was 0.5. The viral screen was negative. Legionella urine antigen was negative. Chest x-ray showed cardiomegaly, and bibasilar pulmonary infiltrates especially on the right consistent with pneumonia. Repeat chest x-ray was done today and there is no significant change compared to yesterday's evaluation. No altered mentation. No pleurisy. No hemoptysis. No swelling in lower extremities. She is currently on oxygen at 2 L with a pulse ox of 93%. She is a non-smoker. On 12/25/2024, the patient is being seen for a follow-up. The patient is still being treated for bilateral lower lobe pneumonia. The patient continues to be in atrial fibrillation. Oxygenation is improved and the patient Room Air Oxygen. Remains on Rocephin and Zithromax. Sputum Culture and Blood Cultures Still Pending for Now. White Cell Count Is 7.0 with a Hemoglobin of 11.2 and a Platelet Count of 215. Meanwhile, the Patient Remains on the Cardizem Drip for Rate Control. She Continues to Be Somewhat Tachycardic and Her Heart Rate Continues to Fluctuate Significantly. Cardiology on the Case. No Other New Complaints Otherwise for Now. No Altered Mentation. No Pleurisy or Hemoptysis. The patient is seen today December 26, 2024 in follow-up on the selective care unit. She is currently sitting up in a chair. Awake and alert in no acute distress. Maintaining O2 saturations in the 90s on 2 L/min per nasal cannula. She denies any worsening shortness of breath, cough or congestion. Chest x-ray revealed improved aeration of the lungs. Cardiomegaly. Sputum culture revealed no growth. Blood culture revealed no growth. White count 6.7. Hemoglobin 11.6. Platelets 252. Sodium 136. Potassium 4.3. Bicarb 24. BUN 15. Creatinine 0.77. Procalcitonin was 0.51. She remains on azithromycin. Continued on bronchodilators. Continued on a prednisone taper. She remains on a Cardizem drip at 15 mg an hour. Remains in atrial flutter with RVR. She is anticoagul ated with Eliquis. Objective - Vital Signs Vital signs: Vital Signs Temp 98.1 F 12/26/24 11:45 Pulse 164 H 12/26/24 11:45 Resp 16 12/26/24 11:45 BP 100/72 12/26/24 11:45 Pulse Ox 93 L 12/26/24 11:45 FiO2 21 12/25/24 11:03 Intake & Output 12/25/24 12/26/24 12/26/24 18:59 06:59 18:59 Intake Total 827 262.25 865 Balance 827 262.25 865 Weight 67.9 kg Intake: IV 20 20 Invasive Line 2 20 Invasive Line 4 20 Intake, IV Titration 125 242.25 125 Amount Diltiazem 125 mg In 125 242.25 125 Dextrose 5% in Water 100 ml @ 5 MG/HR 5 mls/hr IV .Q24H [facility] Rx#:[id number] Oral 702 720 Other: Voiding Method Toilet Toilet Toilet # Voids 1 1 # Bowel Movements 1 - Exam GENERAL EXAM: Alert, pleasant 79-year-old female, sitting up in a chair, on 2 L nasal cannula, comfortable in no apparent distress. HEAD: Normocephalic. EYES: Normal reaction of pupils, equal size. NOSE: Clear with pink turbinates. THROAT: No erythema or exudates. NECK: No masses, no JVD. CHEST: No chest wall deformity. LUNGS: Equal air entry with few scattered rhonchi. CVS: S1 and S2 normal with no audible murmur, irregular rhythm. ABDOMEN: No hepatosplenomegaly, normal bowel sounds, no guarding or rigidity. SPINE: No scoliosis or deformity SKIN: No rashes CENTRAL NERVOUS SYSTEM: No focal deficits, tone is normal in all 4 extremities. EXTREMITIES: There is no peripheral edema. No clubbing, no cyanosis. Peripheral pulses are intact. - Labs CBC & Chem 7: 12/26/24 05:59 12/26/24 05:59 Labs: Abnormal Lab Results - Last 24 Hours (Table) 12/26/24 12/26/24 Range/Units 05:59 05:59 RBC 3.90 L (4.10-5.20) 10*6/uL Hgb 11.6 L (12.0-15.0) g/dL Hct 35.7 L (37.2-46.3) % Sodium 136 L (137-145) mmol/L Glucose 125 H (74-99) mg/dL Microbiology - Last 24 Hours (Table) 12/25/24 09:10 Gram Stain - Preliminary Sputum Sputum Culture - Preliminary Assessment and Plan Assessment: Acute bilateral lower lobe pneumonia, likely bacterial. The viral screen is negative. Legionella urine antigen is also negative. Procalcitonin 0.51. Remains on azithromycin Acute hypoxic respiratory failure, currently on room air oxygen Asthma exacerbation secondary to above Atrial fibrillation/flutter with rapid ventricular response, this is of a new onset. The patient remains on a Cardizem drip Shortness of breath secondary to above History of hypertrophic cardiomyopathy Plan: The patient was seen and evaluated Chest x-ray, labs and medications reviewed EKG reviewed Remains in atrial flutter with RVR Continued on a Cardizem drip Anticoagulated with Eliquis Continued on antibiotics Continued on bronchodilators Chest x-ray showing much improvement Stable and on 2 L nasal cannula Titrate down/off the FiO2 as tolerated We will continue to follow I have personally seen and examined the patient, performed the documentation and the assessment and plan as written. Number of minutes spent on the visit: 10 Dictation was produced using [employer] software. Please excuse any grammatical, word or spelling errors.
[2024-12-26 18:12] VITALS: RESP 18
[2024-12-26] MEDS: METOPROLOL SUCCINATE (ER) 50 MG TAB.ER.24H PO SCH (19:51)
[2024-12-26] MEDS: DILTIAZEM 125 MG in DEXTROSE 5% IN WATER 100 ML IV SCH (21:43)
[2024-12-27 03:51] VITALS: BP 99/63; TEMP 98.1
[2024-12-27 06:55] LABS: Basophils # (A) 0.02 10*3/uL (0.00-0.10); Basophils % (A) 0.2 %; Eosinophils # (A) 0.05 10*3/uL (0.04-0.35); Eosinophils % (A) 0.5 %; HCT 33.9 % (37.2-46.3); HGB 11.1 g/dL (12.0-15.0); Lymphocytes # (A) 2.06 10*3/uL (0.90-5.00); Lymphocytes % (A) 22.5 %; MCH 29.8 pg (27.0-32.0); MCHC 32.7 g/dL (32.0-37.0); MCV 91.1 fL (80.0-97.0); Monocytes # (A) 1.01 10*3/uL (0.20-1.00); Monocytes % (A) 11.0 %; Neutrophils # (A) 5.93 10*3/uL (1.80-7.70); Neutrophils % (A) 64.9 %; Platelet Count 271 10*3/uL (140-440); RBC 3.72 10*6/uL (4.10-5.20); RDW 12.5 % (11.5-14.5); WBC 9.15 10*3/uL (4.50-10.00)
[2024-12-27 07:15] LABS: African American GFR (CKD) 72 (>60 ml/min/1.73 sqM); Anion Gap 8 mmol/L; Blood Urea Nitrogen 21 mg/dL (7-17); Calcium 10.3 mg/dL (8.4-10.2); Carbon Dioxide 23 mmol/L (22-30); Chloride 106 mmol/L (98-107); Glucose 93 mg/dL (74-99); Non-African American GFR(CKD) 63 (>60 ml/min/1.73 sqM); Potassium 4.4 mmol/L (3.5-5.1); Sodium 137 mmol/L (137-145)
--- NOTE | 2024-12-27 07:22 | CA ---
Transthoracic Echo Report Name: Dulce Maria Eason Age: 79 Gender: F : 1945 Exam Date: 12/26/2024 09:51 Exam Location: [facility] Ht (in): 65 Wt (lb): 149 Ordering Physician: Gualberto Molina MD Attending/Referring Phys: Pearl Digger Ruma Marks RDCS Procedure CPT: Indications: afib rvr Cardiac Hx: Technical Quality: Fair Contrast 1: Definity Total Dose (mL): 2 Contrast 2: Total Dose (mL): MEASUREMENTS (Male / Female) Normal Values 2D ECHO LV Diastolic Diameter PLAX 3.8 cm 4.2 - 5.9 / 3.9 - 5.3 cm LV Systolic Diameter PLAX 3.2 cm IVS Diastolic Thickness 1.3 cm 0.6 - 1.0 / 0.6 - 0.9 cm LVPW Diastolic Thickness 1.3 cm 0.6 - 1.0 / 0.6 - 0.9 cm LV Relative Wall Thickness 0.7 RV Internal Dim ED PLAX 2.0 cm LVOT Diameter 1.9 cm LA Systolic Diameter LX 3.9 cm 3.0 - 4.0 / 2.7 - 3.8 cm LA Volume 102.2 cm??? 18 - 58 / 22 - 52 cm??? LA Volume Index 57.7 cm???/m??? 16 - 28 cm???/m??? M-MODE Aortic Root Diameter MM 3.2 cm LA Systolic Diameter MM 3.8 cm LA Ao Ratio MM 1.2 AV Cusp Separation MM 1.5 cm DOPPLER MV Area PHT 8.4 cm??? Mitral E Point Velocity 102.4 cm/s Mitral A Point Velocity 1.1 cm/s Mitral E to A Ratio 96.0 MV Deceleration Time 90.4 ms TR Peak Velocity 242.0 cm/s TR Peak Gradient 23.4 mmHg FINDINGS Left Ventricle Left ventricular ejection fraction is estimated at 30-35%. Moderately increased septal wall thickness. Mildly increased posterior wall thickness. Apical hypertrophy of the left ventricle. Moderately reduced global left ventricular systolic function. Right Ventricle Severely increased right ventricular wall thickness. Generalized right ventricular hypokinesis. Right ventricular systolic pressure within normal limits. Right Atrium Moderate right atrial dilatation. Left Atrium Severely increased left atrial volume. Mitral Valve Structurally normal mitral valve. Mild mitral regurgitation. No mitral stenosis. Aortic Valve Trileaflet aortic valve. Diffuse thickening (sclerosis) of the aortic valve cusps without reduced excursion. No aortic regurgitation. Tricuspid Valve Structurally normal tricuspid valve. Moderate tricuspid regurgitation. No tricuspid stenosis. Pulmonic Valve Structurally normal pulmonic valve. Trace pulmonic regurgitation. No pulmonic stenosis. Pericardium No pericardial or pleural effusion. Aorta Normal size aortic root and proximal ascending aorta. CONCLUSIONS Moderate to severe LV systolic dysfunction with an ejection fraction of 35% Apical hypertrophy Left atrial enlargement Right atrial enlargement Mild mitral and moderate tricuspid regurgitation Previewed by: Dr. Saúl Michael MD (Electronically Signed) Final Date: 27 December 2024 07:21
[2024-12-27 09:51] VITALS: PULSE 60
--- NOTE | 2024-12-27 12:14 | P.DS ---
Providers Date of admission: 12/22/24 01:48 Attending physician: Sincere Bray MD Consults: 12/23/24 16:13 Consult Physician Routine Consulting Provider: Pascual Butts Consult Reason/Comments: PNA Do you want consulting provider notified?: Yes 12/24/24 03:57 Consult Physician Routine Consulting Provider: Yong Kuo Consult Reason/Comments: afib Do you want consulting provider notified?: Yes Primary care physician: Anoop Del Valle Hospital Course: Discharge Diagnosis: Acute hypoxic respiratory failure secondary to community-acquired pneumonia asthma exacerbation HFrEF EF 35% not in acute exacerbation New onset A-fib with RVR Hyperlipidemia Hospital Course: 79 year old F with PMH Asthma, HDL, HOCM presents to the ED for productive cough and shortness of breath. In the ED she underwent extensive evaluation. BP 130/78, HR 93, T 100.4F, RR 18, 93% on RA. CBC, Coag panel, CMP significant for Na 135, glu 130, Ca 10.7. Trop 0.022. Lactc acid 1.2. CXR RML PNA. EKG sinus rhythm with PVCs. COVID, RSV, Flu neg. Legionella Ag neg. Patient was started on bronchodilators and Rocephin/Azithromycin, admitted for further workup and management. Pulmonary consulted. Went into A-Fib with RVR on 12/24. Started on Cardizem drip and Heparin drip. Cardiology consulted. cardiology started Toprol-XL in addition to Cardizem, heart rate is under good control now. Patient is satting well on room air. She completed 5 days of treatment with ceftriaxone, azithromycin, prednisone, no antibiotics or steroids will be prescribed at discharge.Metoprolol succinate and Eliquis. TTE showed EF of 35% Patient was cleared for discharge by cardiology, will follow-up as outpatient as well as follow-up with primary care physician. Heart failure education provided. Patient will need to be started on GDMT, currently blood pressure is soft, explained to the patient that she needs to closely follow-up with the above specialists regarding initiation of GDMT and check her blood pressure regularly Patient seen and examined at bedside. Vital signs reviewed and stable. General: Nontoxic, no distress, appears at stated age Derm: Warm, dry Head: Atraumatic, normocephalic, symmetric Eyes: EOMI, no lid lag, anicteric sclera Mouth: No lip lesion, mucus membranes moist Cardiovascular: S1S2 reg, no murmur Lungs: CTA bilateral, no rhonchi, no rales, no accessory muscle use, no wheezing Abdominal: Soft, nontender to palpation, no guarding, no appreciable organomegaly Ext: No gross muscle atrophy, no edema, no contractures Neuro: CN II-XI grossly intact, no focal neuro deficits Psych: Alert, oriented, appropriate affect A total of 40 minutes of time were spent preparing this complex discharge summary. Patient was discharged on 12/27/2024. Patient Condition at Discharge: Fair Plan - Discharge Summary Discharge Rx Participant: Yes New Discharge Prescriptions: New Famotidine [Pepcid] 20 mg PO DAILY #30 tab Apixaban [Eliquis] 5 mg PO BID #30 tab Metoprolol Succinate (ER) [Toprol XL] 50 mg PO BID #60 tab Continue Pravastatin Sodium [Pravachol] 20 mg PO HS Ascorbic Acid [Vitamin C] 1,000 mg PO DAILY Ubidecarenone [Co Q-10] 100 mg PO DAILY Ibandronate Sodium [Boniva] 150 mg PO QMONTHLY Albuterol Sulfate [Albuterol Sulfate Hfa] 2 puff INHALATION RT-Q4H PRN PRN Reason: Shortness Of Breath Fluticasone Nasal [place] [Flonase Nasal [place]] 1 spray EA NOSTRIL DAILY Fluticasone Propion/Salmeterol [Advair 100-50 Diskus] 1 puff INHALATION RT- BID Discharge Medication List Pravastatin Sodium [Pravachol] 20 mg PO HS 03/08/19 [History] Ascorbic Acid [Vitamin C] 1,000 mg PO DAILY 04/12/20 [History] Ubidecarenone [Co Q-10] 100 mg PO DAILY 04/12/20 [History] Albuterol Sulfate [Albuterol Sulfate Hfa] 2 puff INHALATION RT-Q4H PRN 12/22/24 [History] Fluticasone Nasal [place] [Flonase Nasal [place]] 1 spray EA NOSTRIL DAILY 12/22/24 [History] Fluticasone Propion/Salmeterol [Advair 100-50 Diskus] 1 puff INHALATION RT-BID 12/22/24 [History] Ibandronate Sodium [Boniva] 150 mg PO QMONTHLY 12/22/24 [History] Apixaban [Eliquis] 5 mg PO BID #30 tab 12/27/24 [Rx] Famotidine [Pepcid] 20 mg PO DAILY #30 tab 12/27/24 [Rx] Metoprolol Succinate (ER) [Toprol XL] 50 mg PO BID #60 tab 12/27/24 [Rx] Follow up Appointment(s)/Referral(s): Yong Kuo MD [STAFF PHYSICIAN] - 1 Week Anoop Del Valle DO [Primary Care Provider] - 1-2 days Patient Instructions/Handouts: Heart Failure (DC) Activity/Diet/Wound Care/Special Instructions: Please, follow-up with your primary care physician and circuit board assembler. Please take all the medications as prescribed. Please, monitor your blood pressure daily, keep a log of the readings to discuss with your heart doctor and your primary care provider. Follow low-salt diet as provided in the AVS. Check your weight daily and again keep a log of the readings. What to Expect at Home Your energy will slowly return. You may need help taking care of yourself when you first get home. You may feel sad or depressed. All of these things are normal. Checking Yourself at Home Weigh yourself every morning on the same scale when you get up -- before you eat but after you use the bathroom. Make sure you are wearing similar clothing each time you weigh yourself. Write down your weight every day on a chart so that you can keep track of it.Call your doctor or nurse advice line if you have a sudden weight gain, such as more than 1 to 1.3 kilograms (2 to 3 pounds) in a day or 2.3 kilograms (5 pounds) in a week. (Your doctor may suggest a different range of weight gain.) A sudden weight gain may mean that your heart failure is getting worse. Throughout the day, ask yourself: Is my energy level normal? Do I get more short of breath when I am doing my everyday activities? Are my clothes or shoes feeling tight? Are my ankles or legs swelling? Am I coughing more often? Does my cough sound wet? Do I get short of breath at night or when I lie down? If you are having new (or different) symptoms, ask yourself: Did I eat something different than usual or try a new food? Did I take all of my medicines the right way at the right times? Diet and Fluids Your health care provider may ask you to limit how much you drink. When your heart failure is not very severe, you may not have to limit your fluids too much. As your heart failure gets worse, you may be asked to limit fluids to 6 to 9 cups (1.5 to 2 liters) a day. You will need to eat less salt. Salt can make you thirsty, and being thirsty can cause you to drink too much fluid. Extra salt also makes fluid stay in your body. Lots of foods that do not taste salty, or that you do not add salt to, still contain a lot of salt. You may need to take a diuretic, or water pill. Do not drink alcohol. Alcohol makes it harder for your heart muscles to work. Ask your provider what to do on special occasions where alcohol and foods you are trying to avoid will be served. If you smoke, stop. Ask for help quitting if you need it. Do not let anybody smoke in your home. Learn more about what you should eat to make your heart and blood vessels healthier. Avoid fatty foods. Stay away from fast-food restaurants. Avoid some prepared and frozen foods. Learn fast food tips. Try to stay away from things that are stressful for you. If you feel stressed all the time, or if you are very sad, talk with your provider who can refer you to a counselor. Discharge Disposition: HOME SELF-CARE
--- NOTE | 2024-12-27 12:16 | P.PN ---
Subjective Progress Note Date: 12/27/24 79-year-old female patient, known history of chronic bronchial asthma, coming in with symptoms of increased dyspnea, cough, congestion and wheezing. No documented fever. Based on her worsening shortness of breath, the patient presented to the hospital and the patient was found to have also atrial fibri llation with rapid ventricular response. Accordingly, the patient was hospitalized, started on broad-spectrum antibiotics and she is currently on DuoNeb nebulized treatments [id number], IV Rocephin and Zithromax and prednisone 40 mg p.o. daily. The patient was also started on Cardizem drip for rate control. She is on anticoagulation with Eliquis 5 mg p.o. twice a day. White cell count of 10.1. Hemoglobin 11.9 and platelet count of 196. Normal electrolytes. Procalcitonin level was 0.51. Calcium levels at 10.3. TSH was 0.5. The viral screen was negative. Legionella urine antigen was negative. Chest x-ray showed cardiomegaly, and bibasilar pulmonary infiltrates especially on the right consistent with pneumonia. Repeat chest x-ray was done today and there is no significant change compared to yesterday's evaluation. No altered mentation. No pleurisy. No hemoptysis. No swelling in lower extremities. She is currently on oxygen at 2 L with a pulse ox of 93%. She is a non-smoker. On 12/25/2024, the patient is being seen for a follow-up. The patient is still being treated for bilateral lower lobe pneumonia. The patient continues to be in atrial fibrillation. Oxygenation is improved and the patient Room Air Oxygen. Remains on Rocephin and Zithromax. Sputum Culture and Blood Cultures Still Pending for Now. White Cell Count Is 7.0 with a Hemoglobin of 11.2 and a Platelet Count of 215. Meanwhile, the Patient Remains on the Cardizem Drip for Rate Control. She Continues to Be Somewhat Tachycardic and Her Heart Rate Continues to Fluctuate Significantly. Cardiology on the Case. No Other New Complaints Otherwise for Now. No Altered Mentation. No Pleurisy or Hemoptysis. The patient is seen today December 26, 2024 in follow-up on the selective care unit. She is currently sitting up in a chair. Awake and alert in no acute distress. Maintaining O2 saturations in the 90s on 2 L/min per nasal cannula. She denies any worsening shortness of breath, cough or congestion. Chest x-ray revealed improved aeration of the lungs. Cardiomegaly. Sputum culture revealed no growth. Blood culture revealed no growth. White count 6.7. Hemoglobin 11.6. Platelets 252. Sodium 136. Potassium 4.3. Bicarb 24. BUN 15. Creatinine 0.77. Procalcitonin was 0.51. She remains on azithromycin. Continued on bronchodilators. Continued on a prednisone taper. She remains on a Cardizem drip at 15 mg an hour. Remains in atrial flutter with RVR. She is anticoagul ated with Eliquis. The patient was seen today December 27, 2024 in follow-up on the selective care unit. She is currently sitting up in bed. Denies any worsening shortness of breath, cough or congestion. Maintaining good O2 saturations in the 90s on room air. She has been afebrile. Hemodynamically stable. Blood cultures revealed no growth. Sputum culture revealed no growth. White count 9.1. Hemoglobin 11.1. Platelets 271. Sodium 137. Potassium 4.4. Bicarb 23. BUN 21. Creatinine 0.87. She remains on DuoNeb inhalations. Remains on a prednisone taper. Anticoagulated with Eliquis. Objective - Vital Signs Vital signs: Vital Signs Temp 98.1 F 12/27/24 03:50 Pulse 60 12/27/24 10:00 Resp 18 12/27/24 03:50 BP 99/63 12/27/24 03:50 Pulse Ox 94 L 12/27/24 08:32 FiO2 21 12/25/24 11:03 Intake & Output 12/26/24 12/27/24 12/27/24 18:59 06:59 18:59 Intake Total 2124 76.25 Balance 2124 76.25 Weight 68.5 kg Intake: IV 20 Invasive Line 4 20 Intake, IV Titration 385 76.25 Amount Diltiazem 125 mg In 125 Dextrose 5% in Water 100 ml @ 5 MG/HR 5 mls/hr IV .Q24H [facility] Rx#:[id number] Diltiazem 125 mg In 76.25 Dextrose 5% in Water 100 ml @ 5 MG/HR 5 mls/hr IV .Q24H [facility] Rx#:[id number] Sodium Chloride 0.9% 1, 160 000 ml @ 20 mls/hr IV . Q24H [facility] Rx#:[id number] cefTRIAXone 2 gm In 100 Sodium Chloride 0.9% 50 ml @ 100 mls/hr IVPB Q24HR [facility] Rx#:[id number] Oral 1720 Other: Voiding Method Toilet Toilet # Voids 3 1 - Exam GENERAL EXAM: Alert, pleasant 79-year-old female, resting in bed, on room air oxygen, comfortable in no apparent distress. HEAD: Normocephalic. EYES: Normal reaction of pupils, equal size. NOSE: Clear with pink turbinates. THROAT: No erythema or exudates. NECK: No masses, no JVD. CHEST: No chest wall deformity. LUNGS: Equal air entry with few scattered rhonchi. CVS: S1 and S2 normal with no audible murmur, irregular rhythm. ABDOMEN: No hepatosplenomegaly, normal bowel sounds, no guarding or rigidity. SPINE: No scoliosis or deformity SKIN: No rashes CENTRAL NERVOUS SYSTEM: No focal deficits, tone is normal in all 4 extremities. EXTREMITIES: There is no peripheral edema. No clubbing, no cyanosis. Peripheral pulses are intact. - Labs CBC & Chem 7: 12/27/24 06:31 12/27/24 06:31 Labs: Abnormal Lab Results - Last 24 Hours (Table) 12/27/24 12/27/24 Range/Units 06:31 06:31 RBC 3.72 L (4.10-5.20) 10*6/uL Hgb 11.1 L (12.0-15.0) g/dL Hct 33.9 L (37.2-46.3) % Immature Gran # 0.08 H (0.00-0.04) 10*3/uL Monocytes # 1.01 H (0.20-1.00) 10*3/uL BUN 21 H (7-17) mg/dL Calcium 10.3 H (8.4-10.2) mg/dL Microbiology - Last 24 Hours (Table) 12/25/24 09:10 Gram Stain - Final Sputum Sputum Culture - Final Assessment and Plan Assessment: Acute bilateral lower lobe pneumonia, likely bacterial. The viral screen is negative. Legionella urine antigen is also negative. Procalcitonin 0.51. Remains on azithromycin Acute hypoxic respiratory failure, currently on room air oxygen Asthma exacerbation secondary to above Atrial fibrillation/flutter with rapid ventricular response, this is of a new onset. The patient remains on a Cardizem drip Shortness of breath secondary to above History of hypertrophic cardiomyopathy Plan: The patient was seen and evaluated Labs and medications reviewed Cleared for discharge Evaluate for possible home oxygen Completed prednisone taper Anticoagulated with Eliquis Follow-up in the office in 1 week I have personally seen and examined the patient, performed the documentation and the assessment and plan as written. Number of minutes spent on the visit: 10 Dictation was produced using [employer] dictation software. Please excuse any grammatical, word or spelling errors.
--- NOTE | 2024-12-27 14:32 | P.PN ---
Subjective Progress Note Date: 12/27/24 The patient was seen and evaluated this morning which she continues to be in atrial flutter/fib with a fast heart rate. Currently she is on Cardizem IV. No AV blaze lisa agents orally. She is on oral anticoagulation. The echo continues to be pending. The physical examination is remarkable for tachycardia with diminished breathing sounds bilaterally and no edema was noted in the lower extremities 12/27/2024 Patient seen and examined. Patient's heart rate is in the 160s all day yesterday and then converted to sinus rhythm. Toprol was increased. Blood pressure 99/63, heart rate 60, pulse ox 94% on 2 L nasal cannula. Repeat blood work reveals hemoglobin 1.1, BUN 21 creatinine 0.87, potassium 4.4. Echocardiogram reveals EF of 35%, apical hypertrophy, left atrial enlargement, right atrial enlargement, mild mitral and moderate tricuspid regurgitation. The physical examination is remarkable for regular rate with diminished breathing sounds bilaterally and no edema was noted in the lower extremities Assessment Paroxysmal atrial flutter/fib versus atrial tachycardia, converted to sinus rhythm Pneumonia Multiple comorbid conditions Plan Start the patient on Toprol-XL in addition to Cardizem Continue oral anticoagulation Patient is cleared for discharge from cardiology perspective. She may follow-up in the office in 1 to 2 weeks. Nurse practitioner note has been reviewed, I agree with documented findings and plan of care. Patient was seen and examined. Objective - Vital Signs Vital signs: Vital Signs Temp 98.1 F 12/27/24 03:50 Pulse 51 L 12/27/24 03:50 Resp 18 12/27/24 03:50 BP 99/63 12/27/24 03:50 Pulse Ox 92 L 12/27/24 03:50 FiO2 21 12/25/24 11:03 Intake & Output 12/26/24 12/27/24 12/27/24 18:59 06:59 18:59 Intake Total 2124 76.25 Balance 2124 76.25 Weight 68.5 kg Intake: IV 20 Invasive Line 4 20 Intake, IV Titration 385 76.25 Amount Diltiazem 125 mg In 125 Dextrose 5% in Water 100 ml @ 5 MG/HR 5 mls/hr IV .Q24H [facility] Rx#:[id number] Diltiazem 125 mg In 76.25 Dextrose 5% in Water 100 ml @ 5 MG/HR 5 mls/hr IV .Q24H [facility] Rx#:[id number] Sodium Chloride 0.9% 1, 160 000 ml @ 20 mls/hr IV . Q24H [facility] Rx#:[id number] cefTRIAXone 2 gm In 100 Sodium Chloride 0.9% 50 ml @ 100 mls/hr IVPB Q24HR [facility] Rx#:[id number] Oral 1720 Other: Voiding Method Toilet Toilet # Voids 3 1 - Labs CBC & Chem 7: 12/27/24 06:31 12/27/24 06:31 Labs: Abnormal Lab Results - Last 24 Hours (Table) 12/27/24 12/27/24 Range/Units 06:31 06:31 RBC 3.72 L (4.10-5.20) 10*6/uL Hgb 11.1 L (12.0-15.0) g/dL Hct 33.9 L (37.2-46.3) % Immature Gran # 0.08 H (0.00-0.04) 10*3/uL Monocytes # 1.01 H (0.20-1.00) 10*3/uL BUN 21 H (7-17) mg/dL Calcium 10.3 H (8.4-10.2) mg/dL Microbiology - Last 24 Hours (Table) 12/25/24 09:10 Gram Stain - Preliminary Sputum Sputum Culture - Preliminary
== END 2024-12-27 14:37 | disposition home or self-care (01) | DRG 193 ==
LOC: EC 20:31 → 4SSUR 12-22 01:48 → 3SCARD 12-24 04:53
PROVIDERS: ADMIT Internal Medicine; ATTEND Internal Medicine
DX: J18.8 Other pneumonia, unspecified organism (principal); J96.01 Acute respiratory failure with hypoxia; I50.20 Unspecified systolic (congestive) heart failure; I48.92 Unspecified atrial flutter; I42.1 Obstructive hypertrophic cardiomyopathy; J45.901 Unspecified asthma with (acute) exacerbation; Z11.52 Encounter for screening for COVID-19; I08.1 Rheumatic disorders of both mitral and tricuspid valves; I48.91 Unspecified atrial fibrillation; E78.5 Hyperlipidemia, unspecified; I49.3 Ventricular premature depolarization; Z79.01 Long term (current) use of anticoagulants; Z79.899 Other long term (current) drug therapy; Z88.5 Allergy status to narcotic agent; Z98.51 Tubal ligation status
CPT/HCPCS: 36415; 71045; 71046; 80048; 80053; 83605; 83735; 84145; 84443; 84484; 85025; 85027; 85610; 85730; 87040; 87070; 87205; 87449; 87636; 93005; 93306; 94640; 94760; 96365; 96366; 96367; 96372; 99285

== ENCOUNTER 2025-01-01 07:49 | Emergency (ER) | payer MEDICARE ==
[2025-01-01 08:12] VITALS: BP 112/66; RESP 16
--- NOTE | 2025-01-01 08:26 | ED ---
General Adult HPI - General Chief complaint: Neck Pain/Injury Stated complaint: Neck pain Time Seen by Provider: 01/01/25 07:52 Source: patient, family, RN notes reviewed, old records reviewed Mode of arrival: wheelchair - History of Present Illness Initial comments: 79-year-old female presenting with neck pain worse with movement. Symptoms began 2 days ago when the patient woke with a stiff neck on the right. This has progressed to be bilateral however still worse on the right. No jaw pain. No chest pain. She is recovering from pneumonia and recent diagnosis of A-fib. She was placed on metoprolol and Eliquis and has completed her antibiotics. Overall she is getting better. Patient denies fever. She denies injury. She states that this morning the pain is somewhat better than yesterday but persistent. - Related Data Home Medications Medication Instructions Recorded Confirmed Pravastatin Sodium [Pravachol] 20 mg PO HS 03/08/19 12/22/24 Ascorbic Acid [Vitamin C] 1,000 mg PO DAILY 04/12/20 12/22/24 Ubidecarenone [Co Q-10] 100 mg PO DAILY 04/12/20 12/22/24 Albuterol Sulfate [Albuterol 2 puff INHALATION RT-Q4H PRN 12/22/24 12/22/24 Sulfate Hfa] Fluticasone Nasal [place] [Flonase 1 spray EA NOSTRIL DAILY 12/22/24 12/22/24 Nasal [place]] Fluticasone Propion/Salmeterol 1 puff INHALATION RT-BID 12/22/24 12/22/24 [Advair 100-50 Diskus] Ibandronate Sodium [Boniva] 150 mg PO QMONTHLY 12/22/24 12/22/24 Previous Rx's Medication Instructions Recorded Apixaban [Eliquis] 5 mg PO BID #30 tab 12/27/24 Famotidine [Pepcid] 20 mg PO DAILY #30 tab 12/27/24 Metoprolol Succinate (ER) [Toprol 50 mg PO BID #60 tab 12/27/24 XL] Cyclobenzaprine [Flexeril] 5 mg PO HS PRN #5 tab 01/01/25 methylPREDNISolone Dose Pack 4 mg PO DIRECTED #21 packet 01/01/25 [Medrol Dose Pack] Allergies Allergy/AdvReac Type Severity Reaction Status Date / Time povidone-iodine Allergy ITCHINH, Verified 01/01/25 08:03 [From Betadine] RED, RASH soap [From Betadine] Allergy ITCHINH, Verified 01/01/25 08:03 RED, RASH codeine AdvReac Confusion Verified 01/01/25 08:03 hydromorphone [From Dilaudid] AdvReac Confusion Verified 01/01/25 08:03 Review of Systems ROS Statement: Those systems with pertinent positive or pertinent negative responses have been documented in the HPI. ROS Other: All systems not noted in ROS Statement are negative. Past Medical History Past Medical History: Asthma Additional Past Medical History / Comment(s): RECURRENT LT INGUINAL HERNIA, x3, apical HCM History of Any Multi-Drug Resistant Organisms: None Reported Past Surgical History: Appendectomy, Breast Surgery, Hernia Repair, Tonsillectomy, Tubal Ligation Additional Past Surgical History / Comment(s): BREAST BIOPSY RIGHT. LT INGUINAL HERNIA 05/2019 WITH LYSIS OF ADHESIONS. COLONOSCOPY Past Anesthesia/Blood Transfusion Reactions: Postoperative Nausea & Vomiting (PONV) Past Psychological History: No Psychological Hx Reported Smoking Status: Never smoker Past Alcohol Use History: None Reported Past Drug Use History: None Reported - Past Family History Mother Family Medical History: Cancer Additional Family Medical History / Comment(s): CERVICAL CANCER Father Family Medical History: Cancer General Exam General appearance: alert, in no apparent distress Head exam: Present: atraumatic, normocephalic Eye exam: Present: normal appearance, PERRL Neck exam: Present: normal inspection. Absent: full ROM (Good range of motion somewhat limited by pain) Respiratory exam: Present: normal lung sounds bilaterally. Absent: respiratory distress, wheezes Cardiovascular Exam: Present: regular rate, normal rhythm. Absent: tachycardia, irregular rhythm GI/Abdominal exam: Present: soft, distended. Absent: tenderness Extremities exam: Present: normal inspection, normal capillary refill Neurological exam: Present: alert, oriented X3, CN II-XII intact. Absent: motor sensory deficit Psychiatric exam: Present: normal affect, normal mood Skin exam: Present: warm, dry, intact Course Vital Signs 01/01/25 01/01/25 07:58 08:09 Temperature 98.1 F 97.4 F L Pulse Rate 71 58 L Respiratory 18 16 Rate Blood Pressure 132/83 112/66 O2 Sat by Pulse 97 94 L Oximetry Medical Decision Making - Medical Decision Making Was pt. sent in by a medical professional or institution ([facility] Euceda, MAILROOM ASSISTANT, urgent care, hospital, or snf...) When possible be specific @ -No Did you speak to anyone other than the patient for history (EMS, parent, family, police, friend...)? What history was obtained from this source @ -No Did you review nursing and triage notes (agree or disagree)? Why? @ -I reviewed and agree with nursing and triage notes Were old charts reviewed (outside hosp., previous admission, EMS record, old EKG, old radiological studies, urgent care reports/EKG's, snf records)? Report findings @ -No old charts were reviewed Differential Diagnosis; neck strain, torticollis, anginal equivalent EKG interpreted by me (3pts min.). @ -As above X-rays interpreted by me (1pt min.). @ -None done CT interpreted by me (1pt min.). @ -None done U/S interpreted by me (1pt. min.). @ -None done What testing was considered but not performed or refused? (CT, X-rays, U/S, labs)? Why? @ -None What meds were considered but not given or refused? Why? @ -None Did you discuss the management of the patient with other professionals (professionals i.e. MAIDA Euceda, MAILROOM ASSISTANT, lab, RT, psych nurse, social work lecturer, emergency vehicle driver, teacher, credit review officer, rn case manager hospice)? Give summary @ -No Was smoking cessation discussed for >3mins.? @ -No Was critical care preformed (if so, how long)? @ -No Were there social determinants of health that impacted care today? How? (Homelessness, low income, unemployed, alcoholism, drug addiction, transportation, low edu. Level, literacy, decrease access to med. care, alf, rehab)? @ -No Was there de-escalation of care discussed even if they declined (Discuss DNR or withdrawal of care, Hospice)? DNR status @ -No What co-morbidities impacted this encounter? (DM, HTN, Smoking, COPD, CAD, Cancer, CVA, ARF, Chemo, Hep., AIDS, mental health diagnosis, sleep apnea, morbid obesity)? @ -None Was patient admitted / discharged? Hospital course, mention meds given and route, prescriptions, significant lab abnormalities, going to OR and other pertinent info. @ -79-year-old female with stiff neck, neck pain. Pain is musculoskeletal in nature. No chest pain no dyspnea. No vomiting. No jaw pain. Worse with movement. No injury. Patient is taking Tylenol only. She will benefit from steroids and muscle relaxer. Undiagnosed new problem with uncertain prognosis? @ -No Drug Therapy requiring intensive monitoring for toxicity (Heparin, Nitro, Insulin, Cardizem)? @ -No Were any procedures done? @ -No Diagnosis/symptom? @ -Neck strain, torticollis Acute, or Chronic, or Acute on Chronic? @ -Acute Uncomplicated (without systemic symptoms) or Complicated (systemic symptoms)? @ -Default Side effects of treatment? @ -No Exacerbation, Progression, or Severe Exacerbation? @ -No Poses a threat to life or bodily function? How? (Chest pain, [place], [place], pneumonia, PE, COPD, DKA, ARF, appy, cholecystitis, CVA, Diverticulitis, Homicidal, Suicidal, threat to staff... and all critical care pts) @ -No Disposition Clinical Impression: Strain of neck muscle Disposition: HOME SELF-CARE Condition: Good Instructions (If sedation given, give patient instructions): Cervical Strain (ED) Prescriptions: Cyclobenzaprine [Flexeril] 5 mg PO HS PRN #5 tab PRN Reason: Muscle Spasm methylPREDNISolone Dose Pack [Medrol Dose Pack] 4 mg PO DIRECTED #21 packet Is patient prescribed a controlled substance at d/c from ED?: No Referrals: Anoop Del Valle DO [Primary Care Provider] - 1-2 days Time of Disposition: 08:26
[2025-01-01 08:43] VITALS: PULSE 61; TEMP 97.8
== END 2025-01-01 08:43 | disposition home or self-care (01) ==
LOC: EC 07:49
DX: S16.1XXA Strain of muscle, fascia and tendon at neck level, initial encounter (principal); Z88.5 Allergy status to narcotic agent; Z88.8 Allergy status to other drugs, medicaments and biological substances; Z91.048 Other nonmedicinal substance allergy status; X58.XXXA Exposure to other specified factors, initial encounter
CPT/HCPCS: 99283